=== PATIENT | female | born 1960 | race African-American/Black ===

== ENCOUNTER 2018-02-01 19:18 | Emergency (ER) | payer OTHER ==
[~2018-02-01] VITALS: Ht 167.6 cm; Wt 154.1 kg
[~2018-02-01 19:18] MED LIST: ACETAMINOPHEN325 M1 PO; ADDERALL; ASPIRIN81 M2 PO; AUGMENTIN 875875 MG PO; BACTRIM DS TAB1 EACH PO; CIPRO250 M1 PO; CIPROFLOXACIN500 M1; CIPROFLOXACIN500 M1 PO; COREG6.25 MG PO; FLAGYL500 MG; FLEXERIL PO; GLUCOPHAGE1000 MG PO; LANTUS SUBQ; LEVAQUIN 250 M250 MG PO; LIPITOR10 MG PO; LISINOPRIL40 MG PO; LISINOPRIL5 MG PO; METFORMIN PO; MOBIC7.5 M1 PO; NAPROSYN375 MG PO; NAPROSYN500 MG PO; NICOTINE TRANSD21 M1 TD; NICOTINE1 EACH TD; NITROGLYCERIN0.4 MG SUBLING; NORCO 5-325 TA1 EACH PO; NOVOLIN R100 UNIT/1 SUBQ; NOVOLOG100 UNIT/1 SQ; NOVOLOG100 UNIT/1 SUBQ; ONDANSETRON HCL4 M2 PO; PRILOSEC20 MG PO; ROBAXIN 750 MG750 MG PO; SIMVASTATIN20 MG PO; ZESTORETIC; ZOFRAN ODT4 MG SUBLING; [UNRECOGNIZED DRUG - OTHER] MC; [UNRECOGNIZED DRUG - REMARK]
[2018-02-01] MEDS ORDERED: ALLI60 MG PO (19:34)
[2018-02-01] MEDS ORDERED: VITAMINC500 PO (19:34)
[2018-02-01] MEDS ORDERED: FAMOTIDINE 20 M20 MG PO (19:35)
[2018-02-01] MEDS ORDERED: COZAAR 25 MG TA25 M1 PO (19:36)
[2018-02-01] MEDS ORDERED: HYDRALAZINE 2525 MG PO (19:37)
[2018-02-01] MEDS ORDERED: KLOR-CON 1010 MEQ PO (19:37)
[2018-02-01] MEDS ORDERED: LASIX 20 MG TAB20 MG PO (19:39)
[2018-02-01] MEDS ORDERED: TOUJEO MAX300 UNIT/1 SUBQ (19:42)
[2018-02-01] MEDS ORDERED: PRED FORTE 1% EY5 M1 OTIC (19:44)
[2018-02-01 19:49] LABS: ABSOLUTE BASOPHILS 0.1 thou/uL (0.0-0.2); ABSOLUTE EOSINOPHILS 0.1 thou/uL (0.0-0.7); ABSOLUTE LYMPHOCYTES 2.6 thou/uL (0.8-5.3); ABSOLUTE MONOCYTES 0.9 thou/uL (0.0-1.2); ABSOLUTE NEUTROPHILS 5.4 thou/uL (1.6-8.1); EOSINOPHILS 1.4 %; HEMATOCRIT 34.7 % (37.0-47.0); HEMOGLOBIN 10.9 gm/dL (12.0-15.0); LYMPHOCYTES 28.5 %; MCH 26.7 pg (26.0-34.0); MCHC 31.4 g/dL (28.0-37.0); MCV 85.1 fL (80.0-100.0); MONOCYTES 10.3 %; MPV 7.9 fl. (7.2-11.1); NUCLEATED RBCS 0 /100WBC; PLATELET COUNT* 205 thou/uL (150-400); POLYS 58.8 %; RBC 4.07 mil/uL (4.20-5.00); RDW-CV 17.9 % (10.5-14.5); WBC 9.1 thou/uL (4.0-11.0)
[2018-02-01 19:56] LABS: ANION GAP 6 mmol/L (7-16); BUN 36 mg/dL (7-18); CALCIUM 8.7 mg/dL (8.5-10.1); CHLORIDE 108 mmol/L (98-107); CO2 25 mmol/L (21-32); CREATININE 1.5 mg/dL (0.6-1.3); GLUCOSE 116 mg/dL (70-99); POTASSIUM 4.3 mmol/L (3.5-5.1); SODIUM 139 mmol/L (136-145)
[2018-02-01 19:58] LABS: INR 1.2; PROTIME 11.2 Seconds (9.20-11.50)
[2018-02-01 20:07] LABS: ALBUMIN 2.8 g/dL (3.4-5.0); ALKALINE PHOSPHATASE 214 U/L (46-116); NT-PRO BRAIN NAT PEPTIDE 3189 pg/mL (<300); SGOT 22 U/L (15-37); SGPT 26 U/L (30-65); TOTAL BILIRUBIN 0.6 mg/dL (<0.1-1.0); TOTAL PROTEIN 7.5 g/dL (6.4-8.2); TROPONIN-I LEVEL <0.06 ng/mL (<0.06)
[2018-02-01 21:58] LABS: URINE BLOOD TRACE (Negative); URINE CLARITY CLEAR; URINE COLOR YELLOW; URINE GLUCOSE-RANDOM NEGATIVE (Negative); URINE KETONES NEGATIVE (Negative); URINE LEUKOCYTES-REFLEX NEGATIVE (Negative); URINE NITRITE-REFLEX NEGATIVE (Negative); URINE PROTEIN 3+ (Negative); URINE SPECIFIC GRAVITY 1.025 (1.005-1.030)
[2018-02-01 22:02] LABS: URINE BILIRUBIN 1+ (Negative)
[2018-02-01 22:03] LABS: ICTOTEST (BILI CONFIRMATORY) Negative (Negative)
[2018-02-01 22:04] LABS: BACTERIA-REFLEX >30 Many /HPF (None Seen); SQUAMOUS >10 Many /LPF (0-3)
[2018-02-01 22:05] LABS: CRYSTALS None Seen /LPF (None Seen); HYALINE CASTS 0-3 Few /LPF (None Seen); MUCUS None Seen strn/LPF (None Seen); URINE RBC 0-2 Rare /HPF (0-2); URINE WBC-REFLEX 0-5 Rare /HPF (0-5)
[2018-02-01 22:09] LABS: AMP/METHAMP Negative (Negative); BARBITURATES Negative (Negative); BENZODIAZEPINES Negative (Negative); COCAINE Negative (Negative); METHADONE Negative (Negative); OPIATES POSITIVE (Negative); PCP Negative (Negative); THC Negative (Negative)
[2018-02-01] MEDS ORDERED: NORCO 7.5-3251 EACH PO (22:33)
[2018-02-01 22:59] VITALS: BP 161/87
--- NOTE | 2018-02-02 13:23 | EKG ---
[place] [address] ELECTROCARDIOGRAM REPORT Name: MICHAEL COTRES Room: [facility]#: [id number] Admission: 02/01/18 Attend Phys: Discharge: 02/01/18 Date of : 58 Report #: [id number] THIS REPORT FOR: //name// [facility] ED Test Date: 2018-02-01 Test Time: 19:23:42 Pat Name: MICHAEL COTRES Department: Room: Gender: F Corporate Technical Recruiter: DAMASO : 1960 Requested By: Mony Barnhart Order Number: [id number] MD: Wu Hathaway Measurements Intervals [place] Rate: 93 P: 23 [place]: 166 QRS: -38 QRSD: 87 T: 77 QT: 367 QTc: 457 Interpretive Statements Sinus rhythm Inferior infarct, old Consider anterior infarct Lateral leads are also involved Baseline wander in lead(s) I,II,aVR,aVL,V1 Compared to ECG 11/03/2014 03:19:08 no change Electronically Signed On 02-02-2018 13:23:40 CDT by Wu Hathaway [email or web address] <ELECTRONICALLY SIGNED> By: Wu Hathaway MD, [facility] 02/02/18 1323 22 22 Wu Hathaway MD, [facility] /EPI
== END 2018-02-01 22:59 | disposition home or self-care (01) ==
LOC: M.ERS 19:18
PROVIDERS: Emergency Medicine
DX: R07.89 Other chest pain (principal); E11.9 Type 2 diabetes mellitus without complications; I11.0 Hypertensive heart disease with heart failure; I50.9 Heart failure, unspecified; F17.210 Nicotine dependence, cigarettes, uncomplicated; Z90.710 Acquired absence of both cervix and uterus; Z90.49 Acquired absence of other specified parts of digestive tract; Z88.5 Allergy status to narcotic agent; Z79.4 Long term (current) use of insulin

== ENCOUNTER 2018-03-29 22:04 | Inpatient (IN) | payer OTHER ==
[~2018-03-29] VITALS: Ht 170.2 cm; Wt 174.2 kg
[~2018-03-29 22:04] MED LIST changes: +ALLI60 MG PO; +COZAAR 25 MG TA25 M1 PO; +FAMOTIDINE 20 M20 MG PO; +HYDRALAZINE 2525 MG PO; +KLOR-CON 1010 MEQ PO; +LASIX 20 MG TAB20 MG PO; +NORCO 7.5-3251 EACH PO; +PRED FORTE 1% EY5 M1 OTIC; +TOUJEO MAX300 UNIT/1 SUBQ; +VITAMINC500 PO
[2018-03-29 22:16] VITALS: BP 192/112
[2018-03-29] MEDS ORDERED: COZAAR 25 MG TA25 M1 PO ×2 (22:26→22:27)
[2018-03-29] MEDS ORDERED: OMEPRAZOLE40 MG PO (22:26)
[2018-03-29] MEDS ORDERED: HYDRALAZINE 5050 MG (22:27)
[2018-03-29] MEDS ORDERED: LASIX 40 MG TAB40 M2 PO (22:28)
[2018-03-29] MEDS ORDERED: INDOMETHACIN 2525 MG (22:28)
[2018-03-29] MEDS ORDERED: ALKA-SELTZER P1 EAC2 (22:29)
[2018-03-29] MEDS ORDERED: PEPTO-BISMOL T262 MG (22:29)
[2018-03-29] MEDS ORDERED: [UNRECOGNIZED DRUG - OTHER] (22:30)
[2018-03-29 23:02] LABS: ABSOLUTE BASOPHILS 0.1 thou/uL (0.0-0.2); ABSOLUTE EOSINOPHILS 0.2 thou/uL (0.0-0.7); ABSOLUTE LYMPHOCYTES 2.2 thou/uL (0.8-5.3); ABSOLUTE MONOCYTES 0.8 thou/uL (0.0-1.2); ABSOLUTE NEUTROPHILS 5.1 thou/uL (1.6-8.1); BASOPHILS 0.8 %; EOSINOPHILS 1.8 %; HEMATOCRIT 38.8 % (37.0-47.0); HEMOGLOBIN 11.9 gm/dL (12.0-15.0); LYMPHOCYTES 26.5 %; MCH 27.7 pg (26.0-34.0); MCHC 30.8 g/dL (28.0-37.0); MONOCYTES 9.8 %; NUCLEATED RBCS 0 /100WBC; PLATELET COUNT* 253 thou/uL (150-400); POLYS 61.1 %; RBC 4.31 mil/uL (4.20-5.00); RDW-CV 18.5 % (10.5-14.5); WBC 8.3 thou/uL (4.0-11.0)
[2018-03-29 23:23] LABS: APTT 30.5 Seconds (25.0-31.3); INR 1.2
[2018-03-29 23:25] LABS: CALCIUM 8.3 mg/dL (8.5-10.1); CREATININE 1.6 mg/dL (0.6-1.3); POTASSIUM 4.8 mmol/L (3.5-5.1)
[2018-03-29 23:29] LABS: ALBUMIN 2.9 g/dL (3.4-5.0); TOTAL BILIRUBIN 0.4 mg/dL (<0.1-1.0); TOTAL PROTEIN 7.2 g/dL (6.4-8.2)
[2018-03-30] VITALS (28 sets, daily range): BP systolic 73–183; BP diastolic 42–101
--- NOTE | 2018-03-30 00:24 | NUR ---
PATIENT RETURNED FROM CT SCAN. PATIENTS RIGHT AC IV FLUIDS NOT FLOWING. UNABLE TO FLUSH IV . PATIENT C/O PAIN AT SITE..ALL FLUIDS STOPPED. DR AGUIRRE NOTIFIED. MARIBEL GALLEGOS, PATIENTS PRIMARY ED NURSE NOTIFIED.
--- NOTE | 2018-03-30 00:52 | NUR ---
Risks and benefits of central line placement discussed with pt, understanding verbalized. Consent obtained at this time.
--- NOTE | 2018-03-30 04:08 | NUR ---
PT ADMITTED TO ICU ROOM # 1 AT 0200 FOR GI BLEED AND ACUTE KIDNEY INJURY. PT ALERT AND ORIENTED X 4. PT HAVING INTERMITTENT SHARP STOMACH PAINS. PT GIVEN PRN FENTANYL IN ED AND AGAIN IN ICU. GOLYTELY PREP OBTAINED. PT INSTRUCTED TO START IN PREPARATION FOR COLONOSCPY.
[2018-03-30 08:12] LABS: HEMATOCRIT 31.9 % (37.0-47.0); HEMOGLOBIN 9.9 gm/dL (12.0-15.0)
[2018-03-30 09:17] LABS: CREATININE 1.5 mg/dL (0.6-1.3); MAGNESIUM 1.8 mg/dL (1.8-2.4); POTASSIUM 4.7 mmol/L (3.5-5.1)
--- NOTE | 2018-03-30 10:10 | NUR ---
INTERDISICPLINARY ROUNDS: PT ADMITTED WITH GI BLEED. MET WITH PT. SHE LIVES WITH HER CHILDREN, WORKS OUTSIDE THE HOME AND IS NORMALLY INDEPENDENT AND ACTIVE. WEARS CAM BOOT. SHE HAS HAD HH IN THE PAST AFTER AN 'AMPUTATION' BUT CANNOT REMEMBER NAME OF AGENCY. PT STATES HER SON WILL BRING IN INSURANCE CARD. WILL FOLLOW
--- NOTE | 2018-03-30 10:30 | NUR ---
0730 ASSUMED CARE OF PATIENT. UP TO BSC. SEE DOCUMENTED ASSESSMENT. DR MISHRA HERE TO SEE PATIENT. PT C/O ABDOMINAL PAIN. BOWEL PREP IN PROGRESS.
--- NOTE | 2018-03-30 10:31 | NUR ---
1000 PT NAUSEOUS AND RETCHING HAS TAKEN ABOUT 2/3 OF COLYTE PREP. STOPPED REMAINDER OF PREP AT THIS TIME.
--- NOTE | 2018-03-30 16:08 | NUR ---
TO OR PER BED. FAMILY SAW PATIENT BEFORE SHIE LEFT FOR PROCEDURE
--- NOTE | 2018-03-30 17:31 | NUR ---
1710 RECEIVED BACK FROM OR PER BED. PT SPIT OUT ORAL AIRWAY AND ASKED FOR ICE CHIPS. ABLE TO MOVE SELF IN BED
--- NOTE | 2018-03-30 18:32 | NUR ---
PATIENT MAKING SOME PROGRESS TOWARDS GOALS. EGD AND COLONOSCOPY DONE. RESUMED DIET. VITAL SIGNS BETTER.STILL HAS C/O HEARTBURN. SEE EKG AND VITAL SIGNS CHARTING. FAMILY HAS VISITED
--- NOTE | 2018-03-30 18:44 | NUR ---
ANTACIDS JUST DELIVERED BY PHARMACY BUT PT IS ASLEEP
--- NOTE | 2018-03-30 19:46 | NUR ---
INITAL ASSESMENT COMPLETED AT 191. PT REPORTED SHARP ABDOMINAL PAIN AT THAT TIME. PT GIVEN PRN FENTANYL WITH GOOD RESULTS. PT ALSO GIVEN TUMS AND GI COCTAIL. PT RESTING WITH OU CLOSED, CALL LIGHT IN REACH.
[2018-03-31] VITALS (19 sets, daily range): BP systolic 87–156; BP diastolic 50–92
[2018-03-31 05:01] LABS: HEMATOCRIT 28.4 % (37.0-47.0); HEMOGLOBIN 8.9 gm/dL (12.0-15.0); MCH 27.7 pg (26.0-34.0); MCHC 31.1 g/dL (28.0-37.0); MCV 88.8 fL (80.0-100.0); MPV 7.7 fl. (7.2-11.1); RBC 3.2 mil/uL (4.20-5.00); WBC 9.6 thou/uL (4.0-11.0)
[2018-03-31 05:23] LABS: HEMATOCRIT 28.1 % (37.0-47.0); HEMOGLOBIN 8.9 gm/dL (12.0-15.0)
[2018-03-31 05:29] LABS: CALCIUM 7.8 mg/dL (8.5-10.1); CREATININE 2.3 mg/dL (0.6-1.3); MAGNESIUM 1.8 mg/dL (1.8-2.4); POTASSIUM 5.2 mmol/L (3.5-5.1)
--- NOTE | 2018-03-31 08:49 | NUR ---
0730 assumed care of patient. please see documented assessment. BLOODPRESSURES STILL RUNNING LOW FOR THIS PATIENT
--- NOTE | 2018-03-31 14:23 | NUR ---
DR CHURCH TO SEE PATIENT. BLOOD PRESSURES HAVE IMPROVED THROUGHOUT THE DAY AND WILL NOTIFY DR SCOTT
--- NOTE | 2018-03-31 14:56 | NUR ---
PT IS NOW TELE STATUS.
--- NOTE | 2018-03-31 15:09 | EKG ---
[place] [address] ELECTROCARDIOGRAM REPORT Name: MICHAEL CORTES Room: [address] ADM IN ..#: [id number] Admission: 03/30/18 Attend Phys: Taryn Hartman Discharge: Date of : 58 Report #: [id number] THIS REPORT FOR: //name// [facility] ED Test Date: 2018-03-30 Test Time: 18:20:33 Pat Name: MICHAEL CORTES Department: Room: [address] Gender: F Funeral Service Apprentice: SARI : 1960 Requested By: Michele Reyna Order Number: [id number] Reading MD: Gumaro Davidson Measurements Intervals [place] Rate: 103 P: -28 ND: 158 QRS: -45 QRSD: 89 T: 60 QT: 377 QTc: 494 Interpretive Statements Sinus tachycardia Inferior infarct, old Probable anteroseptal infarct, old Baseline wander in lead(s) II,III,aVF Compared to ECG 02/01/2018 19:23:42 Sinus rhythm no longer present Myocardial infarct finding still present Electronically Signed On 03-31-2018 15:08:54 CDT by Gumaro Davidson [email or web address] <ELECTRONICALLY SIGNED> By: Padmaja Davidson MD, [facility] 03/31/18 1508 19 19 Padmaja Davidson MD, [facility] /EPI
--- NOTE | 2018-03-31 16:41 | NUR ---
PATIENT PROGRESSING TOWARDS GOALS. RESUMED IV FLUIDS WITH BLOOD PRESSURE IMPROVING. ABLE TO EAT CARB CONTROLLED DIET. BM WAS BROWN BUT INCONTINENT. TO MOVE TO ROOM 221. SEEN BY DR CHURCH WITH PLAN TO HAVE COLONOSCOPY ON MONDAY. PATIENT CONTINUES TO REPORT HEART BURN "CHEST PAIN" AT TIMES. ON ROOM AIR AT THIS TIME. FAMILY HAS VISITED
--- NOTE | 2018-03-31 17:46 | NUR ---
TRANSFERRED PER WHEELCHAIR TO [facility] WITH ALL RECORDS AND BELONGINGS. REPORT TO RONALDO GALLEGOS. PT INCONTINENT OF STOOL UPON TRANSFER. PLACED ON BSC AND GIVEN CALL LIGHT
--- NOTE | 2018-03-31 18:15 | NUR ---
TRANSFER FROM ICU TO TELE ROOM 221 VIA W/C. ASSIST TO BSC TO VOID THEN TO BED. DIRECTOR FINANCIAL SERVICES PLACED, TRACKING SR. PATIENT OREITNED TO ROOM/CALL LIGHT AND REVIEWED PLAN OF CARE. PATIENT SETTLED INTO ROOM, GIVEN WARM BLANKET - IV PAIN MEDICATION TO ASSIST WITH COMPLAINTS OF ABD PAIN. WILL GIVE REPORT TO ONCOMING NURSE FOR CONTINUATION OF CARE. CALL LIGHT WITHIN REACH, SON AT BEDSIDE.
[2018-04-01 04:00] VITALS: BP 107/59
--- NOTE | 2018-04-01 07:32 | NUR ---
PATIENT HAD MULTIPLE LOOSE, INCONTINENT, BLOODY STOOLS THROUGHOUT SHIFT. WALTER CARE PROVIDED WITH INCONTINENCE CHECKS. PATIENT EDUCATED ON PLAN OF CARE AND REPEAT OF BOWEL PREP TODAY FOR COLONOSCOPY SCHEDULED FOR TOMORROW. PATIENT VERBALIZES UNDERSTANDING. CLEAR LIQUID DIET IN PLACE. PATIENT RECEIVED FENTANYL FOR ABDOMINAL PAIN, WITH RELIEF. HOURLY ROUNDING OBSERVED. CALL LIGHT WITHIN REACH
[2018-04-01 08:00] VITALS: BP 119/68
--- NOTE | 2018-04-01 08:15 | NUR ---
ASSUMED PT. CARE AND RECEIVED REPORT AT 0730. PT. SLEEPY, BUT AROUSABLE AND ORIENTATED X4, VSS, MONITOR ON TRACING SR. ON RA @ 100%. PT. UP TO RECLINER. FULL ASSESSMENT COMPLETED, REFER TO CHARTING. NO CURRENT COMPLAINTS. ON CLEAR LIQUID DIET FOR BOWEL PREP TODAY, PT. AWARE. CALL LIGHT IN REACH, WILL CONTINUE WITH PLAN OF CARE.
[2018-04-01 08:18] LABS: HEMATOCRIT 27.2 % (37.0-47.0); HEMOGLOBIN 8.4 gm/dL (12.0-15.0)
[2018-04-01 11:49] VITALS: BP 105/54
[2018-04-01 16:00] VITALS: BP 116/96
[2018-04-01 17:36] LABS: ABSOLUTE EOSINOPHILS 0.2 thou/uL (0.0-0.7); ABSOLUTE LYMPHOCYTES 1.1 thou/uL (0.8-5.3); ABSOLUTE MONOCYTES 0.6 thou/uL (0.0-1.2); BASOPHILS 0.6 %; HEMATOCRIT 27.9 % (37.0-47.0); HEMOGLOBIN 8.8 gm/dL (12.0-15.0); LYMPHOCYTES 18.4 %; MCH 27.8 pg (26.0-34.0); MCHC 31.3 g/dL (28.0-37.0); MCV 88.7 fL (80.0-100.0); MONOCYTES 10.6 %; MPV 7.3 fl. (7.2-11.1); NUCLEATED RBCS 0 /100WBC; PLATELET COUNT* 178 thou/uL (150-400); POLYS 67.4 %; RBC 3.15 mil/uL (4.20-5.00); RDW-CV 17.6 % (10.5-14.5)
[2018-04-01 17:47] LABS: CALCIUM 7.6 mg/dL (8.5-10.1); CREATININE 3.3 mg/dL (0.6-1.3); POTASSIUM 4.6 mmol/L (3.5-5.1)
--- NOTE | 2018-04-01 17:55 | NUR ---
ATTEMPTED TO CALL DR. Joaquin WITH STAT LABS, VOICEMAIL LEFT FOR RETURN CALL.
--- NOTE | 2018-04-01 18:06 | NUR ---
RECEIVED CALL BACK FROM DR Joaquin (GI). GIVEN LABS. NEW ORDER RECEIVED FOR NEPHROLOGY CONSULT, DC COLONOSCOPY, AND SOFT/LOW RESIDUE DIET.
--- NOTE | 2018-04-01 19:47 | NUR ---
PT. HAS REMAINED DROWSY MOST OF THE DAY. MULTIPLE LARGE INCONT. LOOSE BM'S POST START OF BOWEL PREP, SINCE HAS BEEN STOPPED. PT. INFORMED OF PLAN FOR NO COLONOSCOPY TOMORROW. HOURLY ROUNDING COMPLETED THROUGH OUT THE DAY FOR PT. SAFETY.
[2018-04-01 20:00] VITALS: BP 126/75
--- NOTE | 2018-04-01 22:52 | NUR ---
PLACED 16FR INDWELLING PIERCE CATH ORDERED MILD DISCOMFORT EXPRESSED WITH INSERTION HOWEVER OVERALL TOLERATED WELL ABOUT 200 MLS OF CLOUDY YELLOW URINE RETURNED SPECIMEN COLLECTED ET SENT TO LAB ORDERED SAFETY INTERVENTIONS CONTINUE WILL CONTINUE TO MONITOR PATIENT
[2018-04-01 22:54] LABS: URINE BILIRUBIN NEGATIVE (Negative); URINE BLOOD NEGATIVE (Negative); URINE CLARITY SL CLOUDY; URINE COLOR YELLOW; URINE GLUCOSE-RANDOM NEGATIVE (Negative); URINE KETONES NEGATIVE (Negative); URINE LEUKOCYTES-REFLEX NEGATIVE (Negative); URINE NITRITE-REFLEX NEGATIVE (Negative); URINE PROTEIN 1+ (Negative); URINE SPECIFIC GRAVITY >= 1.030 (1.005-1.030); URINE UROBILINOGEN 0.2 E.U./dl (0.2-1.0)
[2018-04-01 22:59] LABS: URINE POTASSIUM-RANDOM 57.6 mmol/L
[2018-04-01 23:08] LABS: MUCUS None Seen strn/LPF (None Seen); SQUAMOUS 4-10 Moderate /LPF (0-3)
[2018-04-01 23:09] LABS: AMORPHOUS URATES Moderate /LPF (None Seen); BACTERIA-REFLEX 1-9 Few /HPF (None Seen); CASTS None Seen /LPF (None Seen); URINE RBC None Seen /HPF (0-2); URINE WBC-REFLEX None Seen /HPF (0-5)
[2018-04-02 00:37] VITALS: BP 107/64
[2018-04-02 04:00] VITALS: BP 148/76
[2018-04-02 05:13] LABS: ABSOLUTE BASOPHILS 0.1 thou/uL (0.0-0.2); ABSOLUTE EOSINOPHILS 0.2 thou/uL (0.0-0.7); ABSOLUTE LYMPHOCYTES 1.2 thou/uL (0.8-5.3); ABSOLUTE MONOCYTES 0.7 thou/uL (0.0-1.2); BASOPHILS 1.1 %; EOSINOPHILS 3.6 %; HEMATOCRIT 27.8 % (37.0-47.0); HEMOGLOBIN 8.6 gm/dL (12.0-15.0); LYMPHOCYTES 19.6 %; MCH 27.6 pg (26.0-34.0); MCHC 31.1 g/dL (28.0-37.0); MCV 88.9 fL (80.0-100.0); MONOCYTES 11.2 %; MPV 7.9 fl. (7.2-11.1); NUCLEATED RBCS 0 /100WBC; PLATELET COUNT* 189 thou/uL (150-400); POLYS 64.5 %; RBC 3.12 mil/uL (4.20-5.00); RDW-CV 17.7 % (10.5-14.5); WBC 6.2 thou/uL (4.0-11.0)
[2018-04-02 05:19] LABS: ALBUMIN 2.3 g/dL (3.4-5.0); CALCIUM 7.7 mg/dL (8.5-10.1); CREATININE 3.6 mg/dL (0.6-1.3); MAGNESIUM 1.9 mg/dL (1.8-2.4); POTASSIUM 4.8 mmol/L (3.5-5.1); TOTAL BILIRUBIN 0.5 mg/dL (<0.1-1.0); TOTAL PROTEIN 6.3 g/dL (6.4-8.2)
--- NOTE | 2018-04-02 06:59 | NUR ---
PATIENT COMPLAIN OF TIGHTNESS OF BANDS ON ARMS STATES SHE FEELS SWOLLEN BILATERAL UPPER EXTREMITIES NOTED IS COOL TO TOUCH DECREASED NS INFUSION RATE TO 100 FROM 150ML/HR PATIENT DENIES SOA PRESENTLY DECREASED OUTPUT NOTED 375ML PER PIERCE WITH 2 UNMEASURED VOIDS AT SHIFT START PRIOR TO PLACEMENT SCANT OUTPUT AND REPORTED TO ONCOMING RN
[2018-04-02 08:30] VITALS: BP 144/85
--- NOTE | 2018-04-02 11:21 | NUR ---
FLUIDS AND ANTIBIOTICS STOPPED PER DR MISHRA. ASPIRIN HELD PER WELL. BRENNEN RESTING AT THIS TIME.
--- NOTE | 2018-04-02 11:23 | NUR ---
PATIENT NOW MED SURG STATUS.
--- NOTE | 2018-04-02 15:47 | NUR ---
REPORT CALLED TO JOSE M. ALL QUESTIONS ANSWERED. PATIENT WILL GO BY WHEELCHAIR WITH NURSING STAFF. ALL BELONGINGS PACKED AND READY TO GO.
--- NOTE | 2018-04-02 18:01 | NUR ---
ALERT AND ORIENTED X4. HAS BEEN VERY DROWZY SINCE ARRIVING TO UNIT. 10/10 PAIN WHEN SHE IS AWAKE. IV PAIN MEDICATION ADMISTERED UPON ARRIVAL TO UNIT. DENIES NAUSEA. IJ TRIPLE LUMEN IS PATENT AND SALINE LOCKED. PIERCE IN PLACE AND DRAINING. VSS ON ROOM AIR. HOURLY ROUNDS HAVE BEEN MAINTAINED SINCE ARRIVING TO UNIT. CALL LIGHT IS WITHIN REACH. NURSING WILL CONTINUE TO MONITOR.
--- NOTE | 2018-04-02 19:00 | NUR ---
ASSUMED CARE OF PATIENT. AGREE WITH PREVIOUS NURSES CHARTING. PATIENT HAS BEEN ORIENTED TO ROOM. CALL LIGHT IS WITHIN REACH. NURSING WILL CONTINUE TO MONITO.
[2018-04-02 19:07] LABS: IgG 1336 mg/dL (700-1600); IgM 50 mg/dL (26-217)
[2018-04-02 21:00] VITALS: BP 105/61
[2018-04-03 01:48] LABS: URINE BLOOD 3+ (Negative); URINE CLARITY TURBID; URINE COLOR RED; URINE GLUCOSE-RANDOM NEGATIVE (Negative); URINE KETONES TRACE (Negative); URINE LEUKOCYTES NEGATIVE (Negative); URINE NITRITE POSITIVE (Negative); URINE PROTEIN 3+ (Negative); URINE SPECIFIC GRAVITY >= 1.030 (1.005-1.030); URINE UROBILINOGEN 0.2 E.U./dl (0.2-1.0)
[2018-04-03 01:54] LABS: URINE BILIRUBIN 2+ (Negative)
[2018-04-03 01:57] LABS: ICTOTEST (BILI CONFIRMATORY) Negative (Negative)
[2018-04-03 02:07] LABS: CASTS None Seen /LPF (None Seen); SQUAMOUS NONE SEEN /LPF (0-3); URINE RBC >20 Many /HPF (0-2); URINE WBC 6-15 Few /HPF (0-5)
[2018-04-03 02:08] LABS: AMORPHOUS URATES Few /LPF (None Seen); MUCUS 4-6 Moderate strn/LPF (None Seen)
[2018-04-03 04:33] LABS: HEMATOCRIT 27.6 % (37.0-47.0); HEMOGLOBIN 8.7 gm/dL (12.0-15.0); MCH 27.9 pg (26.0-34.0); MCHC 31.6 g/dL (28.0-37.0); MCV 88.3 fL (80.0-100.0); MPV 7.7 fl. (7.2-11.1); RBC 3.12 mil/uL (4.20-5.00); RDW-CV 17.4 % (10.5-14.5); WBC 7.3 thou/uL (4.0-11.0)
[2018-04-03 04:45] LABS: CALCIUM 7.6 mg/dL (8.5-10.1); CREATININE 4.2 mg/dL (0.6-1.3); MAGNESIUM 1.9 mg/dL (1.8-2.4); POTASSIUM 4.6 mmol/L (3.5-5.1)
--- NOTE | 2018-04-03 07:32 | NUR ---
PATIENT ALERT AND ORIENTED X 4. VITALS STABLE. PIERCE TO DEPENDENT DRAINAGE. URINE IS DARK RED IN COLOR. PHYSICIAN NOTIFIED OF URINE COLOR AND OUTPUT. REPOSITIONED IN BED PER REQUEST. DROWSY WITH PAIN MEDICATIONS. PLACED ON 2L OF OXYGEN DURING THE NIGHT. GENERALIZED EDEMA NOTED. HOURLY ROUDS. BED ALARM IN USE. NURSING WILL CONTINUE TO MONITOR.
--- NOTE | 2018-04-03 09:29 | CON ---
[address] [address] CONSULTATION Name: MICHAEL CORTES Room: [address] IN ..#: [id number] Admission: 03/30/18 Attend Phys: Taryn Hartman Discharge: Date of : 58 Report #: [id number] THIS REPORT FOR: //name// CC: DIONICIO physician/PCP Philip Calderón DATE OF SERVICE: 04/02/2018 CONSULTING PHYSICIAN: Philip Calderón DO. REASON FOR NEPHROLOGY CONSULTATION: Worsening creatinine, acute kidney injury and chronic kidney disease, stage 3. CHIEF COMPLAINT: Abdominal pain and rectal bleeding. HISTORY OF PRESENT ILLNESS: This is a 57-year-old very pleasant female who has past medical history of diabetes type 2, she reports also diabetic retinopathy and she also reports that her diabetes is well controlled, history of gestational congestive heart failure that she reports and history of morbid obesity and history of hypertension, who came in with a large volume of rectal bleeding and passing clots. The symptoms started all of a sudden when she had left lower quadrant pain and then, she just started passing clots through her rectum. She is scheduled to have a colonoscopy soon. She does take indomethacin 3 times a day at home. It was also noted that the patient states that she also takes Lasix about 60 mg a day because of a congestive heart failure. She also states that she takes both lisinopril and losartan. Her creatinine was 1.5 when she came in. It seems like her baseline could be between 1.5-1.6. Her creatinine has been rising when it was 2.3 on Monday and then 3.1 yesterday morning, 3.3 yesterday evening and 3.6 today. She has been getting IV fluids since her creatinine has been rising since it was 2.3 on Monday. She also has a urinary catheter and has been oliguric. She is not reporting any difficulty breathing. She also states that she takes Bowen Aspirin about every 2 days or so when she has pain. Currently, she is not having any diarrhea, but she also reports that she has been throwing up some. For possible colitis, she has also been started on antibiotic in the form of Zosyn. She was given GoLYTELY for colonoscopy preparation yesterday, but she was asked not to complete the whole colonoscopy preparation since her creatinine was rising. Colonoscopy is now on hold since her creatinine has risen to 3.6. Her blood pressures have also been low quite a few times and it was as low as 90 systolic day before yesterday. ALLERGIES: TO MORPHINE. REVIEW OF SYSTEMS: This is as mentioned in history of present illness[place] [address] CONSULTATION Name: MICHAEL CORTES Room: [address] IN .R.#: [id number] Admission: 03/30/18 Attend Phys: Taryn Hartman Discharge: Date of : 58 Report #: [id number] HOME MEDICATIONS: Include aspirin, lisinopril, nitroglycerin, carvedilol, atorvastatin, ascorbic acid, famotidine, potassium chloride, insulin glargine, losartan 150 mg q. day? omeprazole, hydralazine, Lasix 60 mg a day, indomethacin 25 mg 3 times a day, bismuth subsalicylate Pepto-Bismol, chlorphentermine [place]. PAST MEDICAL AND SURGICAL HISTORY: Includes hysterectomy, insulin-dependent diabetes mellitus, appendectomy, hypertension, possible chronic kidney disease stage 3 with baseline creatinine 1.5-1.6, lymph nodes removed from bilateral armpit, cholecystectomy, [place] in 2007, abscess drained in May, congestive heart failure, left half foot amputation, neuropathy, CKD stage 3, morbid obesity, mild PCM? Her ejection fraction was noted to be 25% in 2014. FAMILY HISTORY: She reports no family history of any kidney disease. SOCIAL HISTORY: She lives with her sons. She does smoke cigarettes. No alcohol use, illicit drug use. 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 PHYSICAL EXAMINATION: VITAL SIGNS: Blood pressure is 144/85 and pulse 75, temperature 36.4, pulse ox is 96% and she is on room air. GENERAL: She is awake, alert and oriented, sitting up in bed, watching TV. HEAD, EYES, EARS, NOSE AND THROAT: Mucous membranes are moist. NECK: Negative. There is no JVD. CHEST: Bilateral diminished breath sounds. No crackles or wheezing. CARDIOVASCULAR: S1 and S2 normal. No murmurs heard. ABDOMEN: Soft, obese and there is a lower abdominal wall at least 2+ edema. LOWER EXTREMITIES: There is a 3+ edema bilateral lower extremities. She has had a left foot transmetatarsal amputation done, which she said was after an accident. NEUROLOGICAL FUNCTION: Gross neurological function is intact. PSYCHIATRIC: Mood and affect seem to be normal. LABORATORY DATA: Hemoglobin 8.6, whereas it was 11.9 on admission. Platelet count is 189, potassium is 4.8, sodium is 141, creatinine is 3.6, whereas it was 1.6 on admission. Other labs are reviewed. IMAGING: Chest x-ray, abdominal pelvic CT were reviewed. ASSESSMENT: 1. Acute kidney injury, chronic kidney disease stage 3, urinalysis showed 1+ protein and no blood in it, baseline creatinine seems to be 1.5-1.6, but now creatinine is 3.6. Initial CT of the abdomen did not show any evidence of obstructive uropathy, but she has developed acute kidney injury after that since then. Therefore, ultrasound needs to be rechecked. Acute kidney injury is [facility] [address] [place] [address] CONSULTATION Name: MICHAEL CORTES Room: [address]#: [id number] Admission: 03/30/18 Attend Phys: Taryn Hartman Discharge: Date of : 58 Report #: [id number] likely ischemic acute tubular necrosis because of hypotension, nonsteroidal antiinflammatory drug use, Lasix as well as lisinopril and losartan use as well as because of lower gastrointestinal bleed. 2. Hematochezia: Colonoscopy is pending, will be done once her creatinine starts getting better. 3. History of chronic systolic congestive heart failure, currently the patient is getting fluid overloaded, so we will go ahead and decrease her IV fluids, normal saline 50 mL an hour. It will be worthwhile to repeat an echocardiogram. 4. Likely diabetic and hypertensive nephropathy, also nonsteroidal antiinflammatory drug is contributing to chronic kidney disease. 5. Diabetes type 2. Blood sugars currently running a little low. 6. Hypertension, blood pressure is currently running a little low. 7. Lower gastrointestinal bleed and acute anemia because of blood loss, GI is following. PLAN: 1. This is likely ischemic ATN, so I do not feel an IV fluid is going to make a difference, she is also getting fluid overloaded, so we will go ahead and decrease normal saline to 50 mL an hour. Threshold to stop IV fluids will also be low in the near future. 2. We will also repeat a renal ultrasound and we will also check serum immunofixation studies. 3. I would decrease Zosyn to q.12h. to adjust the patient's lower GFR. 4. We will go ahead and stop losartan and would also stop hydralazine so that she can maintain a higher blood pressure. 5. Strict I's and O's need to be maintained. 6. Try to keep mean arterial pressure of 65-70. Thank you for this consultation. We will continue to follow along with you. I spent more than 35 minutes in the patient's critical care and evaluating her toward reviewing her medications, placing orders, examining her, discussion with the patient as well as the patient's nurse and we will continue to follow along with you. <ELECTRONICALLY SIGNED> By: Silvia Rose MD 04/03/18 0929 0948 1804Aruiz Rose MD /nt
[2018-04-03 10:11] LABS: HEPATITIS B SURFACE AG Negative (Negative)
[2018-04-03 14:10] LABS: IgA 209 mg/dL (87-352); IgG 1339 mg/dL (700-1600); IgM 51 mg/dL (26-217)
[2018-04-03 16:48] VITALS: BP 111/62
--- NOTE | 2018-04-03 20:27 | NUR ---
ALERT AND ORIENTED X4. UP WITH ASSIST X1 WITH GAIT BELT. IV IS PATENT AND SALINE LOCKED. PAIN BEING MANAGED WITH PO PAIN MEDICATION. DENIES NAUSEA. URINE OUTPUT IS OLIGURIC, AND BLOOD TINDGED. IRRIGATED BLADDER MULTIPLE TIMES THIS SHIFT. GENERALIZED EDEMA. VSS ON ROOM AIR. HOURLY ROUNDS HAVE BEEN MAINTAINED THROUGHOUT [facility]. CALL LIGHT IS WITHIN REACH. NURSING WILL CONTINUE TO MONITOR.
[2018-04-03 22:35] VITALS: BP 146/88
--- NOTE | 2018-04-04 05:49 | NUR ---
PATIENT ALERT AND ORIENTED X 4. VITALS STABLE. RA. DENIES THE NEED FOR PAIN MEDICATION. PIERCE TO DEPENDENT DRAINAGE. CATHETER FLUSHED PER ORDER. LEAKAGE NOTED FROM CATHETER BAG, WILL NOT HAVE ACCURATE MEASUREMENT OF URINE OUTPUT. BED BATH PROVIDED. HOURLY ROUNDS. BED ALARM IN USE. NURSING WILL CONTINUE TO MONITOR.
[2018-04-04 07:45] VITALS: BP 157/74
[2018-04-04 08:07] LABS: HEMATOCRIT 27.7 % (37.0-47.0); HEMOGLOBIN 8.6 gm/dL (12.0-15.0); MCH 27.6 pg (26.0-34.0); MCHC 31.2 g/dL (28.0-37.0); MCV 88.3 fL (80.0-100.0); RBC 3.13 mil/uL (4.20-5.00); RDW-CV 17.5 % (10.5-14.5); WBC 7.2 thou/uL (4.0-11.0)
[2018-04-04 08:59] LABS: CALCIUM 8.1 mg/dL (8.5-10.1); CREATININE 4.5 mg/dL (0.6-1.3); MAGNESIUM 1.9 mg/dL (1.8-2.4)
[2018-04-04 09:25] LABS: PHOSPHORUS* 5.4 mg/dL (2.5-4.9); URIC ACID* 7.7 mg/dL (2.6-7.2)
[2018-04-04 10:11] LABS: ANA INTERPRETATION Negative (Negative)
--- NOTE | 2018-04-04 14:53 | NUR ---
I HAVE REVIEWED THE REASSESSMENT AND DOCUMENTATION BY STUDENT USSANA LOUIE AND AGREE
[2018-04-04 15:07] VITALS: BP 174/93
[2018-04-04 15:12] LABS: KAPPA FREE LIGHT CHAINS 132.1 mg/L (3.3-19.4); LAMBDA FREE LIGHT CHAINS 81.3 mg/L (5.7-26.3)
--- NOTE | 2018-04-04 17:50 | NUR ---
ASSUMED CARE OF PATEINT AFTER MORNING REPORT AT APPROX 0730. ALERT AND ORIENTED X4. ASSESSMENT COMPLETED AND CHARTED. VSS ON ROOM AIR. NO COMPLAINTS OF NAUSEA OR SOA. COMPLAINT OF HEADACHE THIS AFTERNOON, MANAGED WITH MEDICATION. URINE OUTPUT HAS BEEN MINIMAL TODAY BUT RUEINT HAS REMAINED "CLEAR" LIGHT YELLOW. PATIENT CONCENRED ABOUT SWELLING IN ARMS AND TORSO RELATED TO FLUID RETENTION, PATIENT BANDS HAD TO BE REMOVED AND REPLACED DUE TO SWELLING CAUSING TIGHTNESS. PATIENT REQUESTED BENADRYL THIS AFTERNOON FOR ITCHING WITH NO RELIEF, LIKELY RELATED TO THE SWELLING. RESTING COMFORTABLY IN BED AT THIS TIME. HOURLY ROUNDS MAINTAINED, CALL LIGHT WITHIN REACH, NURSING WILL CONTINUE TO MONITOR.
[2018-04-04 21:30] VITALS: BP 129/90
--- NOTE | 2018-04-05 07:21 | NUR ---
PATIENT ALERT AND ORIENTED X 4. VITALS STABLE. RA. PIERCE TO DEPENDENT DRAINAGE. URINE NO LONGER BLOOD TINGED. DENIES PAIN AND NAUSEA. REPOSITIONED IN BED PER REQUEST. HOURLY ROUNDS. BED ALARM IN USE. NURSING WILL CONTINUE TO MONITOR.
[2018-04-05 07:29] LABS: CALCIUM 8.6 mg/dL (8.5-10.1); CREATININE 4.4 mg/dL (0.6-1.3); MAGNESIUM 1.9 mg/dL (1.8-2.4); PHOSPHORUS* 5.3 mg/dL (2.5-4.9); POTASSIUM 5.3 mmol/L (3.5-5.1)
[2018-04-05 08:51] VITALS: BP 149/82
[2018-04-05 10:01] LABS: HEMATOCRIT 28.1 % (37.0-47.0); HEMOGLOBIN 8.9 gm/dL (12.0-15.0); MCH 27.5 pg (26.0-34.0); MCHC 31.7 g/dL (28.0-37.0); MCV 86.8 fL (80.0-100.0); MPV 8.1 fl. (7.2-11.1); RBC 3.23 mil/uL (4.20-5.00); WBC 7.6 thou/uL (4.0-11.0)
[2018-04-05 15:34] VITALS: BP 144/78
--- NOTE | 2018-04-05 18:46 | NUR ---
ASSUMED CARE OF PATIENT AFTER MORNING REPORT AT APPROX 0730. ALERT AND ORIENTED X4. ASSESSMENT COMPLETED AND CHARTED. VSS. NO COMPLAINTS OF PAIN, NAUSEA, OR SOA THIS SHIFT. URINE OUTPUT IS IMPROVING, SEE CHARTING. PATIENT STATES THAT SHE IS STARTING TO FEEL BETTER, MOVING MORE AROUND THE ROOM AND WORKING WITH THERAPIES. HOURLY ROUNDS MAINTAINED, CALL LIGHT WITHIN REACH, NURSING WILL CONTINUE TO MONITOR.
[2018-04-05 20:00] VITALS: BP 139/95
[2018-04-06 04:54] LABS: HEMATOCRIT 27.5 % (37.0-47.0); HEMOGLOBIN 8.7 gm/dL (12.0-15.0); MCH 27.6 pg (26.0-34.0); MCHC 31.6 g/dL (28.0-37.0); MCV 87.2 fL (80.0-100.0); MPV 7.8 fl. (7.2-11.1); RBC 3.16 mil/uL (4.20-5.00); RDW-CV 17.1 % (10.5-14.5); WBC 7.4 thou/uL (4.0-11.0)
[2018-04-06 05:27] LABS: CALCIUM 9.1 mg/dL (8.5-10.1); MAGNESIUM 2.3 mg/dL (1.8-2.4); POTASSIUM 5.1 mmol/L (3.5-5.1)
--- NOTE | 2018-04-06 05:43 | NUR ---
ASSUMED PATIENT CARE AT 1915. PATIENT ALERT AND ORIENTED TIMES FOUR. PAIN MED GIVEN PER PATIENT REQUEST. NO FURTHER COMPLAINTS AFTER ADMINISTRATION. RIGHT JUGULAR LINE PATENT TO FLUSHES AND TO BLOOD DRAW. SOME NAUSEA NOTED THIS AM. MEDS GIVEN. HOURLY ROUNDING AND MOLECULAR BIOLOGIST COMPLETED DOCUMENTED. PATIENT TURNS SELF. WILL CONTINUE TO MONITOR
[2018-04-06 09:54] VITALS: BP 147/87
--- NOTE | 2018-04-06 11:17 | NUR ---
FOLLOWING FOR DISCHARGE, CM SAW PT. SHE WAS RESTING IN BED. ALERT AND ORIENTED. SHE SAID SHE MIGHT FEEL A LITTLE BETTER. HER STOMACH HURTS TODAY. SHE HAS RECEIVED MEDICATION FOR BOTH. SHE HAS NO CONCERNS OR QUESTIONS AT THIS TIME.
[2018-04-06 15:35] VITALS: BP 160/95
--- NOTE | 2018-04-06 18:03 | NUR ---
ASSUMED CARE OF PATIENT AFTER MORNING REPORT AT APPROX 0730. ALERT AND ORIENTED X4. ASSESSMENT COMNPLETED AND CHARTED. VSS ON ROOM AIR. NO COMPLAINTS OF NAUSEA OR SOA THI SHIFT. MINIMAL COMPLAINT OF PAIN, MANAGED WITH MEDICATION. RESTING COMFORTABLY IN BED AT THIS TIME. URINE OUTPUT IMPROVING. HOURLY ROUNDS MAINTAINED, CALL LIGHT WITHIN REACH, NURSING WILL CONTINUE TO MONITOR.
[2018-04-06 20:30] VITALS: BP 175/88
[2018-04-07 00:40] VITALS: BP 153/88
[2018-04-07 04:40] LABS: HEMATOCRIT 26.4 % (37.0-47.0); HEMOGLOBIN 8.4 gm/dL (12.0-15.0); MCH 27.7 pg (26.0-34.0); MCHC 31.8 g/dL (28.0-37.0); MCV 86.9 fL (80.0-100.0); MPV 7.8 fl. (7.2-11.1); RBC 3.04 mil/uL (4.20-5.00); RDW-CV 16.6 % (10.5-14.5); WBC 8.7 thou/uL (4.0-11.0)
[2018-04-07 05:05] LABS: CALCIUM 8.6 mg/dL (8.5-10.1); MAGNESIUM 2.2 mg/dL (1.8-2.4); POTASSIUM 5.7 mmol/L (3.5-5.1)
--- NOTE | 2018-04-07 08:12 | NUR ---
Alert and oriented x 4. She has been in bed all of this shift. BP has been elevated but she's asymptomatic. She did have IV pain meds for abdominal pain x 2 this shift. She refused repositioning. She has slept well.
[2018-04-07 16:00] VITALS: BP 152/84
--- NOTE | 2018-04-07 20:23 | NUR ---
ALERT AND ORIENTED X4. UP WITH ASSIST X1. IV IS PATENT AND INFUSING. DENIES NEED FOR PAIN AND NAUSEA MEDICATION THIS SHIFT. PIERCE IN PLACE AND DRAINING. TOLERATING DIET. VSS ON ROOM AIR. HOURLY ROUNDS HAVE BEEN MAINTAINED THROUGHOUT SHIFT. CALL LIGHT IS WITHIN REACH. NURSING WILL CONTINUE TO MONITOR.
[2018-04-08 06:07] LABS: HEMATOCRIT 27.1 % (37.0-47.0); HEMOGLOBIN 8.5 gm/dL (12.0-15.0); MCH 27.3 pg (26.0-34.0); MCHC 31.5 g/dL (28.0-37.0); MCV 86.9 fL (80.0-100.0); MPV 8.1 fl. (7.2-11.1); RBC 3.12 mil/uL (4.20-5.00); RDW-CV 17.3 % (10.5-14.5); WBC 7.6 thou/uL (4.0-11.0)
[2018-04-08 06:36] LABS: ALBUMIN 2.5 g/dL (3.4-5.0); CALCIUM 8.8 mg/dL (8.5-10.1); CREATININE 3.6 mg/dL (0.6-1.3); MAGNESIUM 2.4 mg/dL (1.8-2.4); PHOSPHORUS* 4.7 mg/dL (2.5-4.9); POTASSIUM 5.9 mmol/L (3.5-5.1)
--- NOTE | 2018-04-08 10:14 | NUR ---
PATIENT HAS SLEPT WELL THROUGHOUT THE NIGHT. PAIN CONTROLLED WITH ORAL PAIN MEDICATIONS. PATIENT TURNED EVERY 2HRS AND NEEDED. VSS ON 2L 02 VIA NASAL CANNULA. PIERCE TO DEPENDENT DRAINAGE WITH DARK YELLOW URINE OUTPUT. TRIPLE LUMEN IJ-SL. PATIENT INSTRUCTED TO USE CALL LIGHT WHEN NEEDING ASSISTANCE. HOURLY ROUNDS MADE. WILL CONTINUE WITH PLAN OF CARE AND NURSING TO MONITOR.
--- NOTE | 2018-04-08 11:31 | NUR ---
REPORT GIVEN TO ROSY GASTON ON TELE. WILL TRANSFER PT CHARANJIT. CHANTEL BS CHECKED AT 1130 IT WAS 82, WILL CHART ON EMAR. KAYEXALATE PROVIDED. WILL TRANSFER TO TELE PER PROVIDER ORDER DUE TO INCREASED POTASSIUM.
[2018-04-08 15:29] VITALS: BP 174/89
--- NOTE | 2018-04-08 17:48 | NUR ---
PATIENT RESTING IN CHAIR IN ROOM. HOURLY ROUNDING COMPLETED FOR PATIENT SAFETY AND PATIENT IN NO APPARENT SIGNS OF DISTRESS. PATIENT HAS HAD SMALL BOUT OF NAUSEA AND HEADACHE, WELL TREATED WITH CURRENT MEDICATION REGIMINE.
[2018-04-08 19:08] LABS: CALCIUM 8.8 mg/dL (8.5-10.1); CREATININE 3.8 mg/dL (0.6-1.3); POTASSIUM 5.3 mmol/L (3.5-5.1)
[2018-04-08 20:53] VITALS: BP 184/84
[2018-04-09 00:20] VITALS: BP 172/91
--- NOTE | 2018-04-09 02:46 | NUR ---
RECEIVED REPORT AND ASSUMED CARE AT 1900. BP ELEVATED, OTHERWISE VSS. PT REPORTED PAIN, PRN MEDICATION ADMIN PER ORDERS. ASSESSMENT COMPLETED CHARTED. DRESSING CHANGED TO LLQ ABD. MEDICATION ADMIN PER EMAR, PT REPORTED NAUSEA, PRN MEDICATION ADMIN, PT REPORTS EFFECTIVE. PT UP WITH MOD ASSIST WITH WALKER WITH BOOT. ON 2L NC. DISCUSSED PLAN OF CARE WITH PT, VERBALIZED UNDERSTANDING. WILL CONTINUE TO MONITOR FOR REMAINDER OF THE SHIFT
[2018-04-09 04:41] VITALS: BP 148/91
[2018-04-09 04:57] LABS: HEMATOCRIT 27.7 % (37.0-47.0); HEMOGLOBIN 8.7 gm/dL (12.0-15.0); MCH 27.6 pg (26.0-34.0); MCHC 31.4 g/dL (28.0-37.0); MCV 87.9 fL (80.0-100.0); MPV 7.8 fl. (7.2-11.1); RBC 3.15 mil/uL (4.20-5.00); RDW-CV 17.5 % (10.5-14.5); WBC 7.2 thou/uL (4.0-11.0)
[2018-04-09 05:10] LABS: CALCIUM 8.7 mg/dL (8.5-10.1); CREATININE 3.6 mg/dL (0.6-1.3); MAGNESIUM 2.3 mg/dL (1.8-2.4); POTASSIUM 4.9 mmol/L (3.5-5.1)
[2018-04-09 11:43] VITALS: BP 150/75
--- NOTE | 2018-04-09 14:51 | NUR ---
CONTINUE TO FOLLOW, MET WITH PT AND BHARTI/SABRINA. PT STATES STILL NOT FEELING WELL TODAY. DISCUSSED DC PLANS, SHE PLANS TO RETURN HOME AT DC. STILL NOT ABLE TO HAVE SON BRING IN INSURANCE INFO BUT PT WENT ON TO STATE 'IT WON'T COVER ALL THIS ANYWAY.' PT THOUGHT SHE HAD A PAPER IN HER BELONGINGS THAT SHE NEEDED TO SIGN FOR FINANCIAL ASSIST, WAS NOT ABLE TO LOCATE. [employer] HAS SCREENED PT AND NOT ELIGIBLE FOR PROGRAMS. CM TO FOLLOW AND ASSIST WITH DC PLANS WHEN KNOWN
--- NOTE | 2018-04-09 18:58 | NUR ---
PATIENT RESTING IN BED. UP TO CHAIR TODAY. PATINET STILL C/O ABD PAIN THAT IS WELL CONTROLLED WTH PO MEDICATION AND ZOFRAN. VITAL SIGNS STABLE AND PATIENT IN NO APPARENT SIGNS OF DISTRESS. HOURLY ROUNDING COMPLLETED FOR PATIENT SAFETY.
[2018-04-09 20:20] VITALS: BP 153/89
[2018-04-10] VITALS: BP 146/71
[2018-04-10 04:00] VITALS: BP 158/74
[2018-04-10 05:08] LABS: HEMATOCRIT 27.1 % (37.0-47.0); HEMOGLOBIN 8.5 gm/dL (12.0-15.0); MCH 27.6 pg (26.0-34.0); MCHC 31.4 g/dL (28.0-37.0); MCV 87.8 fL (80.0-100.0); MPV 7.9 fl. (7.2-11.1); RBC 3.08 mil/uL (4.20-5.00); RDW-CV 16.9 % (10.5-14.5); WBC 7.1 thou/uL (4.0-11.0)
--- NOTE | 2018-04-10 05:10 | NUR ---
Assumed care of patient at 1930. Full assessment performed and documented; hourly rounding completed for patient safety. Patient rested well throughout the night. All VSS. SR noted on telemetry. Sidhu catheter draining milind urine. Patient A&O; repositions herself in bed with minimal assistance. Pain managed by PRN medications. Right triple-lumen IJ intact and patent. Fall precautions in place; bed alarm on. Call light within patient's reach. Will continue to monitor.
[2018-04-10 06:48] LABS: ALBUMIN 2.6 g/dL (3.4-5.0); CALCIUM 8.5 mg/dL (8.5-10.1); CREATININE 3.3 mg/dL (0.6-1.3); MAGNESIUM 2.2 mg/dL (1.8-2.4); POTASSIUM 5.1 mmol/L (3.5-5.1); TOTAL BILIRUBIN 0.5 mg/dL (<0.1-1.0); TOTAL PROTEIN 6.9 g/dL (6.4-8.2)
[2018-04-10 12:00] VITALS: BP 158/95
[2018-04-10] MEDS ORDERED: CARVEDILOL3.125 MG PO (12:50)
[2018-04-10] MEDS ORDERED: TUMS PO (12:50)
[2018-04-10 12:56] VITALS: BP 158/74
--- NOTE | 2018-04-10 13:59 | NUR ---
ORDERS NOTED FOR DC HOME. MET WITH PT, GAVE HER COMMUNITY RESOURCES AND DISCOUNT DRUG CARD. PT AWARE NEEDS TO F/U WITH GI AND RENAL AND TO HAVE LABS DRAWN. DR WIN WAS TO LEAVE SCRIPT FOR PT. PT STATES SHE WILL BE ABLE TO AFFORD HER MEDS AND FAMILY WILL BE WITH HER AT HOME. NO OTHER NEEDS ID'D
--- NOTE | 2018-04-16 11:23 | CON ---
[address] [address] CONSULTATION Name: MICHAEL CORTES Room: [address] IN ..#: [id number] Admission: 03/30/18 Attend Phys: Taryn Hartman Discharge: 04/10/18 Date of : 58 Report #: [id number] THIS REPORT FOR: //name// CC: DIONICIO physician/PCP Philip Calderón DATE OF SERVICE: 03/30/2018 HISTORY OF PRESENT ILLNESS: This is a pleasant 57-year-old female, with past medical history of hypertension, diabetes, hyperlipidemia, CHF and morbid obesity, who presented to the hospital with sudden onset of large volume rectal bleeding with clots. The patient reports associated left lower quadrant abdominal pain, which is cramping in nature. The pain was present at the time of passing the blood clots. The patient denies similar such episodes in the past. The patient denies any diarrhea preceding this. The patient also denies nausea, vomiting and fevers or chills. The patient reports she takes indomethacin for arthritis and is on aspirin for coronary artery disease history. PAST MEDICAL HISTORY: As mentioned above. The patient has history of morbid obesity, hypertension, hyperlipidemia and diabetes. PAST SURGICAL HISTORY: The patient has had a cholecystectomy and appendectomy in the past. SOCIAL HISTORY: The patient denies significant alcohol use or recreational drug use. She does smoke a few cigarettes every day and has been doing this for the last 40 years. FAMILY HISTORY: Positive for coronary artery disease. Negative for colorectal cancer. PHYSICAL EXAMINATION: VITAL SIGNS: Blood pressure 113/56, pulse rate 80, respirations 10, pulse ox 100% on room air. GENERAL: The patient is alert, awake, oriented x 3. HEENT: Mucous membranes are moist. There is no congestion. Pupils are equal, round, reactive to light and accommodation. There is no scleral icterus. NECK: Supple. There is no supraclavicular lymphadenopathy. LUNGS: Clear to auscultation bilaterally. CARDIOVASCULAR: Rate and rhythm regular. S1, S2 present. ABDOMEN: Soft. There is tenderness more pronounced in the left lower quadrant with erythema and inflammation in the area suggesting cellulitis. EXTREMITIES: There is pitting edema bilaterally. NEUROLOGIC: [place] [address] CONSULTATION Name: MICHAEL CORTES Taryn Room: [address]#: [id number] Admission: 03/30/18 Attend Phys: Taryn Hartman Discharge: 04/10/18 Date of : 58 Report #: [id number] LABORATORY DATA: Hemoglobin 11.9, hematocrit 38.8, platelet count 203, WBC count 8.3. Sodium 143, potassium 4.7, bicarbonate 25, BUN 38, creatinine 1.5. AST 22, ALT 24, alkaline phosphatase 247, lipase 107. INR 1.2. Abdomen and pelvis CT, numerous diverticula without evidence of acute inflammation, surgical changes of cholecystectomy and appendectomy and mild thickening of the lower anterior abdominal wall, which may represent cellulitis, moderate adenopathy, inguinal canal of uncertain significance. ASSESSMENT AND PLAN: This is a very pleasant 57-year-old female with past medical history significant of morbid obesity, hypertension, diabetes, hyperlipidemia presenting with large volume hematochezia. PLAN: We will proceed with EGD and colonoscopy. Further recommendations will be based on the results of these tests. <ELECTRONICALLY SIGNED> By: Erasmo Colon MD 04/16/18 1123 2133 0318Erasmo Colon MD /nt
== END 2018-04-10 14:48 | disposition home or self-care (01) | DRG 377 ==
LOC: M.ERS 22:04 → M.ICU 03-30 01:12 → M.TBA-ER 03-30 01:12 → M.ICU 03-30 02:01 → M.2W 03-31 17:41 → M.ORTHSURG 04-02 16:21 → M.2W 04-08 11:57
PROVIDERS: Family Medicine; Internal Medicine; Internal Medicine Gastroenterology; Internal Medicine Nephrology; Nurse Practitioner Family; ADMIT Internal Medicine
PROC: 0DJD8ZZ Inspection of Lower Intestinal Tract, Via Natural or Artificial Opening Endoscopic (ICD-10-PCS; principal; 2018-03-30)
PROC: 02HV33Z Insertion of Infusion Device into Superior Vena Cava, Percutaneous Approach (ICD-10-PCS; principal; 2018-03-30)
PROC: 0DJ08ZZ Inspection of Upper Intestinal Tract, Via Natural or Artificial Opening Endoscopic (ICD-10-PCS; principal; 2018-03-30)
DX: K57.31 Diverticulosis of large intestine without perforation or abscess with bleeding (principal); N17.0 Acute kidney failure with tubular necrosis; Z68.44 Body mass index [BMI] 60.0-69.9, adult; I13.0 Hypertensive heart and chronic kidney disease with heart failure and stage 1 through stage 4 chronic kidney disease, or unspecified chronic kidney disease; D62 Acute posthemorrhagic anemia; R65.10 Systemic inflammatory response syndrome (SIRS) of non-infectious origin without acute organ dysfunction; E44.1 Mild protein-calorie malnutrition; I50.32 Chronic diastolic (congestive) heart failure; N18.4 Chronic kidney disease, stage 4 (severe); E78.5 Hyperlipidemia, unspecified; E66.01 Morbid (severe) obesity due to excess calories; E11.319 Type 2 diabetes mellitus with unspecified diabetic retinopathy without macular edema; E11.22 Type 2 diabetes mellitus with diabetic chronic kidney disease; E11.40 Type 2 diabetes mellitus with diabetic neuropathy, unspecified; I25.10 Atherosclerotic heart disease of native coronary artery without angina pectoris; K64.4 Residual hemorrhoidal skin tags; I95.9 Hypotension, unspecified; K59.09 Other constipation; E87.5 Hyperkalemia; F17.210 Nicotine dependence, cigarettes, uncomplicated; I25.2 Old myocardial infarction; Z23 Encounter for immunization; Z90.49 Acquired absence of other specified parts of digestive tract; Z90.710 Acquired absence of both cervix and uterus; Z89.432 Acquired absence of left foot; Z79.4 Long term (current) use of insulin; Z79.82 Long term (current) use of aspirin; Z79.899 Other long term (current) drug therapy; Z88.5 Allergy status to narcotic agent; Z82.49 Family history of ischemic heart disease and other diseases of the circulatory system

== ENCOUNTER 2018-04-11 03:49 | Inpatient (IN) | payer OTHER ==
[2018-04-11] VITALS (7 sets, daily range): BP systolic 145–181; BP diastolic 77–105
[~2018-04-11] VITALS: Ht 170.2 cm; Wt 178.3 kg
[~2018-04-11 03:49] MED LIST changes: +ALKA-SELTZER P1 EAC2; +CARVEDILOL3.125 MG PO; +HYDRALAZINE 5050 MG; +INDOMETHACIN 2525 MG; +LASIX 40 MG TAB40 M2 PO; +OMEPRAZOLE40 MG PO; +PEPTO-BISMOL T262 MG; +TUMS PO; +[UNRECOGNIZED DRUG - OTHER]
[2018-04-11 04:10] LABS: ABSOLUTE BASOPHILS 0.1 thou/uL (0.0-0.2); ABSOLUTE EOSINOPHILS 0.1 thou/uL (0.0-0.7); ABSOLUTE LYMPHOCYTES 1.6 thou/uL (0.8-5.3); ABSOLUTE NEUTROPHILS 5.3 thou/uL (1.6-8.1); BASOPHILS 1.4 %; EOSINOPHILS 1.3 %; HEMATOCRIT 30.1 % (37.0-47.0); HEMOGLOBIN 9.4 gm/dL (12.0-15.0); LYMPHOCYTES 20.1 %; MCH 27.4 pg (26.0-34.0); MCHC 31.3 g/dL (28.0-37.0); MCV 87.7 fL (80.0-100.0); MONOCYTES 11.9 %; MPV 7.7 fl. (7.2-11.1); NUCLEATED RBCS 0 /100WBC; PLATELET COUNT* 233 thou/uL (150-400); POLYS 65.3 %; RBC 3.43 mil/uL (4.20-5.00); WBC 8.1 thou/uL (4.0-11.0)
[2018-04-11 04:20] LABS: ANION GAP 7 mmol/L (7-16); BUN 49 mg/dL (7-18); CHLORIDE 111 mmol/L (98-107); CO2 23 mmol/L (21-32); CREATININE 3.3 mg/dL (0.6-1.3); GLUCOSE 116 mg/dL (70-99); POTASSIUM 5.1 mmol/L (3.5-5.1); SODIUM 141 mmol/L (136-145)
[2018-04-11 04:24] LABS: INR 1.3
[2018-04-11 04:31] LABS: ALBUMIN 2.7 g/dL (3.4-5.0); ALKALINE PHOSPHATASE 231 U/L (46-116); LIPASE 62 U/L (73-393); NT-PRO BRAIN NAT PEPTIDE 9135 pg/mL (<300); SGOT 23 U/L (15-37); SGPT 23 U/L (30-65); TOTAL BILIRUBIN 0.6 mg/dL (<0.1-1.0); TOTAL PROTEIN 7.7 g/dL (6.4-8.2); TROPONIN-I LEVEL <0.06 ng/mL (<0.06)
--- NOTE | 2018-04-11 10:09 | EKG ---
[place] [address] ELECTROCARDIOGRAM REPORT Name: MICHAEL CORTES Room: [address] ADM IN [facility].#: [id number] Admission: 04/11/18 Attend Phys: Taryn Hartman Discharge: Date of : 58 Report #: [id number] THIS REPORT FOR: //name// [facility] ED Test Date: 2018-04-11 Test Time: 04:18:45 Pat Name: MICHAEL CORTES Department: Room: [facility] Gender: F Voice Instructor: MAYRA : 1960 Requested By: Bola Bedolla Order Number: [id number] MD: Wu Hathaway Measurements Intervals Booker Rate: 90 P: HI: QRS: -6 QRSD: 86 T: 66 QT: 375 QTc: 459 Interpretive Statements sinus rhythm Low voltage, extremity and precordial leads Probable anteroseptal infarct, old Compared to ECG 03/30/2018 18:20:33 Sinus tachycardia no longer present Myocardial infarct finding still present Electronically Signed On 04-11-2018 10:09:35 CDT by Wu Hathaway [email or web address] <ELECTRONICALLY SIGNED> By: Wu Hathaway MD, FACC 04/11/18 1009 0418 0418 Wu Hathaway MD, [facility] /EPI
--- NOTE | 2018-04-11 17:27 | 2DMMODE ---
[place] [address] 2 D/M-MODE ECHOCARDIOGRAM Name: MICHAEL CORTES Room: [address] IN [facility]#: [id number] Admission: 04/11/18 Attend Phys: Philip Calderón Discharge: Date of : 58 Date of Service: 04/11/18 1727 Report #: [id number] THIS REPORT FOR: //name// APPROVED REPORT Study performed: 04/11/2018 14:47:27 EXAM: Comprehensive 2D, Doppler, and color-flow Echocardiogram Patient Location: In-Patient Room #: [facility] Status: routine BSA: 2.69 HR: 87 bpm BP: 154/79 mmHg Rhythm: NSR Other Information Study Quality: Technically Difficult Technically limited study due to body habitus, inability to position patient, parasternal views only views obtainable.. Indications Congestive Heart Failure 2D Dimensions IVSd: 13.47 (7-11mm) LVOT Diam: 21.44 (18-24mm) LVDd: 39.77 mm PWd: 14.11 (7-11mm) Ascending Ao: 36.26 (22-36mm) LVDs: 33.11 (25-40mm) Aortic Root: 32.01 mm Pulmonary Valve PV Peak Bolivar.: 0.79 m/s PV Peak Gr.: 2.51 mmHg Tricuspid Valve RAP Estimate: 5.00 mmHg TR Peak Gr.: 22.95 mmHg RVSP: 28.00 mmHg PA Pressure: 28.00 mmHg Left Ventricle The left ventricle is normal size. There is normal LV segmental wall motion. Mild concentric left ventricular hypertrophy. Left ventricular systolic function is borderline. LVEF is 50-55%. This study is not technically sufficient to allow [place] [address] 2 D/M-MODE ECHOCARDIOGRAM Name: MICHAEL CORTES Room: [address] IN .R.#: [id number] Admission: 04/11/18 Attend Phys: Philip Calderón Discharge: Date of : 58 Date of Service: 04/11/18 1727 Report #: [id number] diastolic function. Right Ventricle The right ventricle is normal size. The right ventricular systolic function is normal. Atria The left atrium size is normal. The right atrium size is normal. Aortic Valve The aortic valve is normal in structure. No aortic regurgitation is present. There is no aortic valvular stenosis. Mitral Valve The mitral valve is normal in structure. Mild mitral regurgitation. No evidence of mitral valve stenosis. Tricuspid Valve The tricuspid valve is normal in structure. Mild tricuspid regurgitation. No pulmonary hypertension. Pulmonic Valve Pulmonic valve is not well visualized. Trace pulmonic regurgitation. Great Vessels The aortic root is normal in size. IVC is not well visualized. Pericardium There is no pericardial effusion. <Conclusion> LVEF is 50-55%. Mild mitral regurgitation. Mild tricuspid regurgitation. No pulmonary hypertension. <ELECTRONICALLY SIGNED> By: Wu Hathaway MD, FACC 04/11/181726 26 26 Wu Hathaway MD, FACC /INF
[2018-04-12 04:27] VITALS: BP 171/83
[2018-04-12 08:15] VITALS: BP 146/68
[2018-04-12 11:33] VITALS: BP 165/95
[2018-04-12 11:33] LABS: URINE BILIRUBIN NEGATIVE (Negative); URINE BLOOD 3+ (Negative); URINE CLARITY CLEAR; URINE COLOR YELLOW; URINE GLUCOSE-RANDOM NEGATIVE (Negative); URINE KETONES NEGATIVE (Negative); URINE LEUKOCYTES-REFLEX 1+ (Negative); URINE PROTEIN 2+ (Negative); URINE UROBILINOGEN 0.2 E.U./dl (0.2-1.0)
[2018-04-12 11:34] LABS: URINE NITRITE-REFLEX POSITIVE (Negative)
[2018-04-12 11:40] LABS: SQUAMOUS 0-3 Few /LPF (0-3)
[2018-04-12 11:41] LABS: BACTERIA-REFLEX 1-9 Few /HPF (None Seen); CASTS None Seen /LPF (None Seen); CRYSTALS None Seen /LPF (None Seen); MUCUS 0-3 Light strn/LPF (None Seen); URINE WBC-REFLEX 6-15 Few /HPF (0-5)
[2018-04-12 12:52] LABS: ABSOLUTE BASOPHILS 0.1 thou/uL (0.0-0.2); ABSOLUTE EOSINOPHILS 0.1 thou/uL (0.0-0.7); ABSOLUTE LYMPHOCYTES 1.5 thou/uL (0.8-5.3); ABSOLUTE MONOCYTES 0.8 thou/uL (0.0-1.2); BASOPHILS 1.3 %; EOSINOPHILS 1.6 %; HEMATOCRIT 26.5 % (37.0-47.0); HEMOGLOBIN 8.4 gm/dL (12.0-15.0); MCH 27.6 pg (26.0-34.0); MCHC 31.7 g/dL (28.0-37.0); MCV 86.9 fL (80.0-100.0); MONOCYTES 9.6 %; MPV 7.2 fl. (7.2-11.1); NUCLEATED RBCS 0 /100WBC; PLATELET COUNT* 214 thou/uL (150-400); POLYS 70.5 %; RBC 3.05 mil/uL (4.20-5.00); RDW-CV 16.5 % (10.5-14.5); WBC 8.6 thou/uL (4.0-11.0)
[2018-04-12 12:59] LABS: CALCIUM 8.8 mg/dL (8.5-10.1); CREATININE 3.1 mg/dL (0.6-1.3); POTASSIUM 5.2 mmol/L (3.5-5.1)
[2018-04-12 16:00] VITALS: BP 155/78
[2018-04-12 19:40] VITALS: BP 145/68
[2018-04-13 00:04] VITALS: BP 141/48
[2018-04-13 04:29] VITALS: BP 146/68
[2018-04-13 08:00] VITALS: BP 144/82
[2018-04-13 09:22] LABS: CALCIUM 8.7 mg/dL (8.5-10.1); POTASSIUM 5.3 mmol/L (3.5-5.1)
[2018-04-13 11:56] VITALS: BP 165/80
[2018-04-13 17:21] VITALS: BP 167/92
[2018-04-13 22:10] LABS: IgA 250 mg/dL (87-352); IgG 1927 mg/dL (700-1600); IgM 72 mg/dL (26-217)
[2018-04-14] VITALS: BP 138/73
[2018-04-14 04:00] VITALS: BP 140/73
[2018-04-14 04:57] LABS: ABSOLUTE BASOPHILS 0.1 thou/uL (0.0-0.2); ABSOLUTE EOSINOPHILS 0.1 thou/uL (0.0-0.7); ABSOLUTE LYMPHOCYTES 1.7 thou/uL (0.8-5.3); ABSOLUTE NEUTROPHILS 6.2 thou/uL (1.6-8.1); BASOPHILS 0.7 %; EOSINOPHILS 1.6 %; HEMATOCRIT 29.1 % (37.0-47.0); HEMOGLOBIN 9.3 gm/dL (12.0-15.0); LYMPHOCYTES 18.3 %; MCH 27.7 pg (26.0-34.0); MCHC 31.9 g/dL (28.0-37.0); MONOCYTES 11.3 %; MPV 8.1 fl. (7.2-11.1); NUCLEATED RBCS 0 /100WBC; PLATELET COUNT* 221 thou/uL (150-400); POLYS 68.1 %; RBC 3.34 mil/uL (4.20-5.00); RDW-CV 16.7 % (10.5-14.5); WBC 9.1 thou/uL (4.0-11.0)
[2018-04-14 05:31] LABS: CREATININE 2.8 mg/dL (0.6-1.3); POTASSIUM 5.2 mmol/L (3.5-5.1)
[2018-04-14 08:00] VITALS: BP 135/67
[2018-04-14 12:00] VITALS: BP 174/79
[2018-04-14 16:00] VITALS: BP 164/80
[2018-04-15] VITALS: BP 165/80
[2018-04-15 04:00] VITALS: BP 153/84
[2018-04-15 06:00] LABS: HEMATOCRIT 27.8 % (37.0-47.0); HEMOGLOBIN 8.8 gm/dL (12.0-15.0); MCH 27.5 pg (26.0-34.0); MCHC 31.7 g/dL (28.0-37.0); MCV 86.9 fL (80.0-100.0); RBC 3.2 mil/uL (4.20-5.00); RDW-CV 16.5 % (10.5-14.5); WBC 9.9 thou/uL (4.0-11.0)
[2018-04-15 06:19] LABS: CALCIUM 8.9 mg/dL (8.5-10.1); CREATININE 2.8 mg/dL (0.6-1.3); POTASSIUM 5.2 mmol/L (3.5-5.1)
[2018-04-15 08:00] VITALS: BP 158/92
[2018-04-15 12:00] VITALS: BP 158/92
[2018-04-15 16:00] VITALS: BP 163/87
[2018-04-16] VITALS: BP 181/99
[2018-04-16 08:00] VITALS: BP 158/78
[2018-04-16 12:00] VITALS: BP 170/89
[2018-04-16 13:11] LABS: KAPPA FREE LIGHT CHAINS 137.7 mg/L (3.3-19.4); LAMBDA FREE LIGHT CHAINS 109.3 mg/L (5.7-26.3)
[2018-04-16 13:25] LABS: HEMATOCRIT 29.3 % (37.0-47.0); HEMOGLOBIN 9.2 gm/dL (12.0-15.0); MCH 27.1 pg (26.0-34.0); MCHC 31.4 g/dL (28.0-37.0); MCV 86.3 fL (80.0-100.0); MPV 7.8 fl. (7.2-11.1); RBC 3.4 mil/uL (4.20-5.00); RDW-CV 16.8 % (10.5-14.5); WBC 9.3 thou/uL (4.0-11.0)
[2018-04-16 13:40] LABS: CREATININE 2.6 mg/dL (0.6-1.3); POTASSIUM 4.6 mmol/L (3.5-5.1)
[2018-04-16 16:00] VITALS: BP 106/60; BP 160/86
[2018-04-16 20:00] VITALS: BP 180/87
[2018-04-16 23:50] VITALS: BP 186/98
[2018-04-17 04:39] VITALS: BP 189/110
[2018-04-17 04:42] LABS: ABSOLUTE BASOPHILS 0.1 thou/uL (0.0-0.2); ABSOLUTE EOSINOPHILS 0.2 thou/uL (0.0-0.7); ABSOLUTE LYMPHOCYTES 2.1 thou/uL (0.8-5.3); ABSOLUTE MONOCYTES 0.9 thou/uL (0.0-1.2); ABSOLUTE NEUTROPHILS 7.2 thou/uL (1.6-8.1); BASOPHILS 0.7 %; EOSINOPHILS 1.9 %; HEMATOCRIT 30.3 % (37.0-47.0); HEMOGLOBIN 9.4 gm/dL (12.0-15.0); LYMPHOCYTES 20.3 %; MCH 27.4 pg (26.0-34.0); MCV 88.3 fL (80.0-100.0); MONOCYTES 8.6 %; MPV 8.1 fl. (7.2-11.1); NUCLEATED RBCS 1 /100WBC; PLATELET COUNT* 214 thou/uL (150-400); POLYS 68.5 %; RBC 3.44 mil/uL (4.20-5.00); WBC 10.5 thou/uL (4.0-11.0)
[2018-04-17 05:06] LABS: ALBUMIN 2.6 g/dL (3.4-5.0); CALCIUM 8.9 mg/dL (8.5-10.1); CREATININE 2.4 mg/dL (0.6-1.3); POTASSIUM 4.6 mmol/L (3.5-5.1); TOTAL BILIRUBIN 0.4 mg/dL (<0.1-1.0)
[2018-04-17 07:55] VITALS: BP 173/84
--- NOTE | 2018-04-17 10:04 | CON ---
[facility] [address] [place] [address] CONSULTATION Name: MICHAEL CORTES Room: [address] IN .R.#: [id number] Admission: 04/11/18 Attend Phys: Taryn Hartman Discharge: Date of : 58 Report #: [id number] THIS REPORT FOR: //name// CC: Gavin Calderón DATE OF SERVICE: 04/13/2018 REQUESTING PHYSICIAN: Dr. Sal. REASON FOR CONSULTATION: History of lymphoma. SUBJECTIVE: This is a 57-year-old -I[place] female who has been admitted because of CHF exacerbation, zkdur-nm-sazevrp diastolic. She stated that 20 years ago she was treated for lymphoma after she had a biopsy of the axillary lymph nodes. She received chemotherapy between 3-4 months. She did not receive any radiation. The patient stated that she is not sure exactly which type, whether it is Hodgkin versus non-Hodgkin. Again, that was done at [facility]. Most recently, she felt some pressure-like to the bilateral lower quadrants. I reviewed her previous recent imaging including CT scan of the abdomen without contrast, which showed extensive anasarca; however, there was no pelvic adenopathy seen. In addition to that, the patient had acute kidney injury, ATN on chronic kidney disease. She is baseline around 3.0. She is actually getting IV iron. REVIEW OF SYSTEMS: All systems were reviewed. It was negative except the above. PAST MEDICAL HISTORY: Lymphoma 20 years ago, was treated with chemotherapy at [facility], not sure exactly which type. CHF, lower GI bleed, dyslipidemia, diabetes mellitus, hypertension, coronary artery disease, neuropathy, chronic kidney disease, morbid obesity. MEDICATIONS: Per admission list. ALLERGIES: MORPHINE. FAMILY HISTORY: Positive for coronary artery disease. SOCIAL HISTORY: She is a former smoker 1 pack per day for 40 years. No alcohol abuse or drug abuse. PAST SURGICAL HISTORY: Hysterectomy, cholecystectomy, left foot amputation. PHYSICAL EXAMINATION: VITAL SIGNS: Today, temperature 36.6, pulse 81, respirations 18, [place] [address] CONSULTATION Name: MICHAEL CORTES Room: [address]#: [id number] Admission: 04/11/18 Attend Phys: Taryn Hartman Discharge: Date of : 58 Report #: [id number] is 164/80, SpO2 was 100% on nasal cannula. GENERAL: The patient was lying in bed. She was not in acute distress. LUNGS: Decreased breathing sounds bilaterally with mild crackles. ABDOMEN: The patient had a midline surgical scar. EXTREMITIES: It was soft. I was not able to feel any palpable lymphadenopathy, however, in the inguinal area. LABORATORY DATA: Today: WBC 8.6, hemoglobin 8.4, RDW of 16.5, MCV 86.9, platelets 214. Creatinine is 3.0. Iron 24, TIBC 340, saturation 7, ferritin 41, bilirubin 0.6, B12 1553, folate is 15.6. ASSESSMENT: A 57-year-old -I[place]ic female who was evaluated because of a previous history of lymphoma 20 years ago, treated with a short course of chemotherapy at [facility], not sure exactly the stage or the type; however, she felt some fullness in the lower quadrant of her abdomen, not able to feel any lymphadenopathy in the inguinal area. However, it is very hard due to the body habitus. RECOMMENDATIONS: 1. I would like to obtain a PET/CT scan, which is going to be done as an outpatient. 2. In terms of anemia, most likely this is due to her chronic kidney disease. Since 01/2018, she has been around baseline between 8 and 9. I totally agree with IV iron to keep her ferritin above 100. We will add peripheral blood smear, LDH, and retic count. We will follow the patient during hospitalization. <ELECTRONICALLY SIGNED> By: Khanh Guo MD 04/17/18 1004 1250 0108Khanh Guo MD /nt
[2018-04-17 12:00] VITALS: BP 154/85
[2018-04-17 16:00] VITALS: BP 126/75
[2018-04-17 17:09] LABS: GLOBULIN TOTAL 3.8 g/dL (2.2-3.9); M-SPIKE Not Observed g/dL (Not Observed)
[2018-04-17 21:15] VITALS: BP 152/81
[2018-04-18 00:24] VITALS: BP 156/68
[2018-04-18 04:00] VITALS: BP 127/82
[2018-04-18 07:55] VITALS: BP 129/82
[2018-04-18 09:19] VITALS: BP 129/82
[2018-04-18] MEDS ORDERED: LASIX 80 MG TAB80 MG PO (12:14)
[2018-04-18] MEDS ORDERED: NIFEDIPINE ER60 M1 PO (12:15)
[2018-04-18] MEDS ORDERED: CEFUROXIME500 MG PO (12:16)
--- NOTE | 2018-04-19 18:23 | CON ---
[address] [address] CONSULTATION Name: MICHAEL CORTES Room: [address]#: [id number] Admission: 04/11/18 Attend Phys: Taryn Hartman Discharge: 04/18/18 Date of : 58 Report #: [id number] THIS REPORT FOR: //name// CC: Gavin Calderón DATE OF SERVICE: 04/13/2018 CONSULTING PHYSICIAN: Dr. Sal. REASON FOR NEPHROLOGY CONSULTATION: Recent acute kidney injury with possible fluid overload. REASON FOR ADMISSION: Sudden onset shortness of breath and facial swelling and leg edema. HISTORY OF PRESENT ILLNESS: This is a 57-year-old female who was discharged from the hospital on 04/10/2018 when she had a prolonged hospitalization for lower GI bleed and acute kidney injury, came in because she woke up feeling swollen in her legs and having edema around her eyes and was also having some shortness of breath. She was found to have a creatinine of 3.3 when she initially came in and she did receive couple of doses of 40 mg Lasix when she came in. Sidhu catheter was also placed, I am not sure if she was retaining any urine, but her urine output has been good, about 1.7 liters in the last 24 hours. She has also been having some abdominal pain and her last bowel movement was about couple of days ago. Her creatinine was high in the last admission and she had ischemic ATN because of low blood pressure, NSAID use, Lasix, ADRIANA inhibitor, losartan as well as lower GI bleed. In fact, her creatinine at that time peaked at 4.5, but it improved to 3.3 at the time of discharge and she did not need any dialysis. She is currently still having abdominal pain. Her breathing seems to be stable. Her edema seems to be the same as it was when she was discharged. Her ejection fraction was found to be 50-55%. Diastolic dysfunction could not be evaluated and no evidence of pulmonary hypertension on her echo which was done in this admission. Also her D-dimer was high, so V/Q scan was done, which ruled out PE. Her chest x-ray did not particularly look too much congested, but did show some mild vascular congestion. ALLERGIES: MORPHINE. REVIEW OF SYSTEMS: As mentioned above in history of present illness and otherwise she has no nausea, no vomiting. She does have constipation and she just feels terrible because of her abdominal pain currently. HOME MEDICATIONS: Include insulin, nitroglycerin, ascorbic acid, famotidine, omeprazole, carvedilol, calcium carbonate, [place] [address] CONSULTATION Name: MICHAEL CORTES Room: [address]#: [id number] Admission: 04/11/18 Attend Phys: Tayrn Hartman Discharge: 04/18/18 Date of : 58 Report #: [id number] PAST MEDICAL AND SURGICAL HISTORY: Includes recent ischemic ATN, lower GI bleed. In her last admission here colonoscopy could not be done because she developed acute kidney injury. Chronic kidney disease stage 3 because of diabetic and hypertensive nephropathy and baseline creatinine of about 1.5-1.6, hypertension, appendectomy, hysterectomy, cholecystectomy, lymph node removal from bilateral armpit, CA, abscess drained in May, possible chronic diastolic congestive heart failure, left half foot amputation, neuropathy, morbid obesity, and diverticulosis. FAMILY HISTORY: Heart disease. SOCIAL HISTORY: She does not smoke. She lives at home. She used to be a smoker. She uses alcohol only occasionally and does not use any recreational drugs. PHYSICAL EXAMINATION: VITAL SIGNS: Blood pressure is 138/70, pulse rate is 89, temperature 36.9, respiratory rate is 20 and pulse ox is 100% on 2 liters nasal cannula. GENERAL: She is awake and alert and oriented. She is lying down in bed. HEAD, EYES, EARS, NOSE AND THROAT: Mucous membranes are moist. NECK: JVD is hard to assess. CHEST: Bilateral diminished breath sounds. No crackles heard. CARDIOVASCULAR: S1, S2 normal. No murmurs. ABDOMEN: Soft, but it is tender all over. There is no rebound or guarding and she has lower abdominal wall edema, 2+. EXTREMITIES: Lower Extremities: She has at least 2+ edema in bilateral lower extremities. NEUROLOGIC: Gross neurological function is intact. PSYCHIATRIC: Mood and affect seem to be normal. LABORATORY DATA: Hemoglobin is 8.4. Potassium is 5.3, creatinine is actually 3.0 now from 3.3 on admission. Iron saturation was 7% and ferritin was 41. Other labs reviewed. IMAGING: Nuclear scan, chest x-ray were reviewed. ASSESSMENT: 1. Recent acute kidney injury on chronic kidney disease stage 3, baseline creatinine used to be 1.5-1.6 on her last admission she went home with a creatinine of 3.3 and her creatinine is worse 3.3 on admission this time, but now it has improved to 3.0. During her last admission, serum immunofixation, free light chain ratio, ERLINDA, all was negative. UA at this time shows evidence of UTI with 11-20 rbc's, 2+ protein and 6-15 wbc's per high power field. 2. Edema, some fluid overload, at the most mild in nature. 3. Abdominal pain, could be related to constipation, she does have history of recent lower gastrointestinal bleed. [facility] [address] [place] [address] CONSULTATION Name: MICHAEL CORTES Room: [address] IN [facility].#: [id number] Admission: 04/11/18 Attend Phys: Taryn Hartman Discharge: 04/18/18 Date of : 58 Report #: [id number] 4. Hypertension, blood pressure currently controlled. 5. Chronic kidney disease stage 3, baseline creatinine 1.5-1.6, hypertensive and diabetic nephropathy. 6. Shortness of breath, mildly improved after Lasix, could be associated with chronic diastolic congestive heart failure exacerbation. 7. Inguinal lymphadenopathy, hematology has been called, remote history of lymphoma. 8. Iron deficiency anemia. Hemoglobin is currently at goal 8.4%, but iron saturation was 7%. 9. Constipation. PLAN: 1. We will give her another dose of Lasix 40 mg IV to help with her edema and hyperkalemia as well. 2. She should be on a renal diet with a 2 g sodium and carb-controlled. 3. We will give her Dulcolax suppository to help with her constipation. 4. She should be on strict I's and O's. 5. We will refrain from giving her p.o. iron since she has been having abdominal pain, but we will give her IV iron to replenish her stores. The patient does not seem to be septic. 6. Urinary tract infection, the patient is getting ceftriaxone currently and follow urine cultures. 7. Agree with Hematology input to evaluate her inguinal lymphadenopathy, some of this could be lymphedema. Thank you for the consultation. We will continue to follow along with you. Discussed the plan with the patient as well as the patient's nurse, Nawaf and we will follow with you. <ELECTRONICALLY SIGNED> By: Silvia Rose MD 04/19/18 1823 0944 2133Aruiz Rose MD /nt
== END 2018-04-18 15:55 | disposition home or self-care (01) | DRG 291 ==
LOC: M.ERS 03:49 → M.3W 05:08 → M.TBA-ER 05:08 → M.3W 05:55
PROVIDERS: Emergency Medicine; Family Medicine; Internal Medicine; Internal Medicine Nephrology; ADMIT Internal Medicine
DX: I13.0 Hypertensive heart and chronic kidney disease with heart failure and stage 1 through stage 4 chronic kidney disease, or unspecified chronic kidney disease (principal); I50.33 Acute on chronic diastolic (congestive) heart failure; N17.0 Acute kidney failure with tubular necrosis; Z68.44 Body mass index [BMI] 60.0-69.9, adult; N12 Tubulo-interstitial nephritis, not specified as acute or chronic; N18.3 Chronic kidney disease, stage 3 (moderate); E11.22 Type 2 diabetes mellitus with diabetic chronic kidney disease; R59.1 Generalized enlarged lymph nodes; D50.9 Iron deficiency anemia, unspecified; I25.10 Atherosclerotic heart disease of native coronary artery without angina pectoris; D89.0 Polyclonal hypergammaglobulinemia; E78.5 Hyperlipidemia, unspecified; K59.00 Constipation, unspecified; B96.1 Klebsiella pneumoniae [K. pneumoniae] as the cause of diseases classified elsewhere; E11.40 Type 2 diabetes mellitus with diabetic neuropathy, unspecified; E66.01 Morbid (severe) obesity due to excess calories; I25.2 Old myocardial infarction; Z90.49 Acquired absence of other specified parts of digestive tract; Z90.710 Acquired absence of both cervix and uterus; Z89.432 Acquired absence of left foot; Z87.891 Personal history of nicotine dependence; Z79.4 Long term (current) use of insulin; Z79.899 Other long term (current) drug therapy; Z88.5 Allergy status to narcotic agent; Z82.49 Family history of ischemic heart disease and other diseases of the circulatory system

== ENCOUNTER 2020-02-17 12:32 | Inpatient (IN) | payer MEDICARE ==
[~2020-02-17] VITALS: Ht 170.2 cm; Wt 122.5 kg
--- NOTE | ~2020-02-17 | CON ---
[facility] [address] [place] [address] CONSULTATION Name: MICHAEL CORTES Room: [address] IN .R.#: [id number] Admission: 02/17/20 Attend Phys: Benitez Sal MD Discharge: Date of : 58 Report #: [id number] THIS REPORT FOR: //name// cc: Gavin Patino MD, Tuongvan T. MD ~ THIS REPORT FOR: //name// CC: Benitez Patino DATE OF SERVICE: 02/18/2020 REQUESTING PHYSICIAN: Benitez Sal MD REASON FOR CONSULTATION: Assist in providing dialysis. HISTORY OF PRESENT ILLNESS: The patient is a very pleasant 59-year-old female with medical history significant for end-stage renal disease, diabetes mellitus type 2, hypertension, and peripheral artery disease. She presents with stroke-like symptoms. She had dizziness and she was lightheaded. She had some problems to answer questions correctly so, Code stroke was called, and Neurology was involved. She had an MRI and CT scan done. MRI showed no acute noncontrast abnormalities. No acute infarction. There was mild chronic white matter microvascular ischemia. Her dialysis takes place at [facility] in [place]. She is on Monday, Monday, and Monday schedule and she was dialyzed yesterday. PAST MEDICAL HISTORY: As I mentioned earlier. SOCIAL HISTORY: No tobacco or alcohol abuse. FAMILY HISTORY: Noncontributory. MEDICATIONS: Prior to admission reviewed. REVIEW OF SYSTEMS: Currently, she is asymptomatic. No chest pain, no shortness of breath, no nausea, no vomiting, no diarrhea, no constipation. She is not febrile. She does not have any chills. She has no neurological symptoms either. PHYSICAL EXAMINATION: GENERAL: Awake, alert, oriented. VITAL SIGNS: Blood pressure 124/80, heart rate is 93, respirations 19, afebrile. NECK: Fatty. LUNGS: [place] [address] CONSULTATION Name: MICHAEL CORTES Room: [address] IN [facility].#: [id number] Admission: 02/17/20 Attend Phys: Benitez Sal MD Discharge: Date of : 58 Report #: [id number] CARDIOVASCULAR: Regular rate. EXTREMITIES: She has left arm AV graft. NEUROLOGICAL: There was no neurological deficit on my exam. ASSESSMENT: 1. End-stage renal disease, dialysis Monday, Monday, and Monday schedule. 2. Hypertension. 3. Diabetes mellitus type 2. 4. Obesity. 5. Questionable stroke. PLAN: Dialysis tomorrow if the patient is in the hospital. Her blood pressure is controlled and blood sugar is controlled. By: 1046 0030Alexandr Zana Baxter MD /alexia
[~2020-02-17 12:32] MED LIST changes: +CEFUROXIME500 MG PO; +LASIX 80 MG TAB80 MG PO; +NIFEDIPINE ER60 M1 PO
[2020-02-17 12:47] VITALS: BP 149/47
[2020-02-17 13:20] LABS: ABSOLUTE BASOPHILS 0.1 thou/uL (0.0-0.2); ABSOLUTE EOSINOPHILS 0.2 thou/uL (0.0-0.7); ABSOLUTE LYMPHOCYTES 1.9 thou/uL (0.8-5.3); ABSOLUTE NEUTROPHILS 7.4 thou/uL (1.6-8.1); BASOPHILS 0.9 %; EOSINOPHILS 1.7 %; HEMATOCRIT 37.5 % (37.0-47.0); HEMOGLOBIN 12.4 gm/dL (12.0-15.0); MCH 29.6 pg (26.0-34.0); MCHC 33.2 g/dL (28.0-37.0); MCV 89.4 fL (80.0-100.0); MONOCYTES 9.7 %; MPV 7.6 fl. (7.2-11.1); NUCLEATED RBCS 0 /100WBC; PLATELET COUNT* 257 thou/uL (150-400); POLYS 69.7 %; RDW-CV 13.2 % (10.5-14.5); WBC 10.6 thou/uL (4.0-11.0)
[2020-02-17 13:35] LABS: ALBUMIN 3.3 g/dL (3.4-5.0); CALCIUM 8.7 mg/dL (8.5-10.1); CREATININE 2.4 mg/dL (0.6-1.3); POTASSIUM 4.1 mmol/L (3.5-5.1); TOTAL BILIRUBIN 0.3 mg/dL (<0.1-1.0); TOTAL PROTEIN 8.7 g/dL (6.4-8.2)
[2020-02-17 13:37] LABS: APTT 29.4 Seconds (25.0-31.3); INR 1.1; PROTIME 11.2 Seconds (9.20-11.50)
[2020-02-17 14:57] VITALS: BP 139/71
[2020-02-17 15:13] VITALS: BP 127/65
[2020-02-17] MEDS ORDERED: HYDRALAZINE 10M10 MG PO (20:27)
[2020-02-17] MEDS ORDERED: HEARTBURN PREVE10 MG PO (20:29)
[2020-02-17] MEDS ORDERED: TRAMADOL 50 MG50 MG PO (20:30)
[2020-02-17] MEDS ORDERED: FLEXERIL PO (20:32)
[2020-02-17 21:00] VITALS: BP 154/85
[2020-02-18] VITALS: BP 127/68
[2020-02-18 02:06] LABS: GLYCOHEMOGLOBIN (HGB A1C) 6.8 % (4.8-5.6)
[2020-02-18 04:00] VITALS: BP 111/63
[2020-02-18 07:24] LABS: ABSOLUTE BASOPHILS 0.1 thou/uL (0.0-0.2); ABSOLUTE EOSINOPHILS 0.2 thou/uL (0.0-0.7); ABSOLUTE LYMPHOCYTES 2.7 thou/uL (0.8-5.3); ABSOLUTE MONOCYTES 0.8 thou/uL (0.0-1.2); ABSOLUTE NEUTROPHILS 5.3 thou/uL (1.6-8.1); BASOPHILS 1.1 %; EOSINOPHILS 1.9 %; HEMATOCRIT 35.5 % (37.0-47.0); HEMOGLOBIN 11.8 gm/dL (12.0-15.0); LYMPHOCYTES 29.7 %; MCHC 33.4 g/dL (28.0-37.0); MONOCYTES 8.6 %; MPV 8.2 fl. (7.2-11.1); NUCLEATED RBCS 0 /100WBC; PLATELET COUNT* 249 thou/uL (150-400); POLYS 58.7 %; RBC 3.94 mil/uL (4.20-5.00); RDW-CV 13.4 % (10.5-14.5); WBC 9.1 thou/uL (4.0-11.0)
[2020-02-18 07:36] LABS: CHOLESTEROL 132 mg/dL (<200); HDL CHOLESTEROL 47 mg/dL (>40); LDL CHOLESTEROL 57 mg/dL (<100); TC:HDL 2.8 Ratio (Not establshd); TRIGLYCERIDE 143 mg/dL (<150); VLDL 29 mg/dL (<40)
[2020-02-18 07:38] LABS: SERUM ASSESSMENT Clear
[2020-02-18 07:50] LABS: CALCIUM 8.4 mg/dL (8.5-10.1); CREATININE 2.9 mg/dL (0.6-1.3); POTASSIUM 4.9 mmol/L (3.5-5.1)
[2020-02-18 08:00] VITALS: BP 124/80
[2020-02-18 12:00] VITALS: BP 142/80
--- NOTE | 2020-02-18 12:02 | 2DMMODE ---
[place] [address] 2 D/M-MODE ECHOCARDIOGRAM Name: MICHAEL CORTES Room: [address] IN [facility]#: [id number] Admission: 02/17/20 Attend Phys: Benitez Sal, Discharge: Date of : 58 Date of Service: 02/18/20 1202 Report #: [id number] THIS REPORT FOR: cc: Gavin Patino MD, Tuongvan T. MD Liston, Michael J. MD [facility] ~ APPROVED REPORT Study performed: 02/18/2020 10:43:07 EXAM: Comprehensive 2D, Doppler, and color-flow Echocardiogram Patient Location: In-Patient Room #: [facility] Status: routine BSA: 2.34 HR: 98 bpm BP: 124/80 mmHg Rhythm: NSR Other Information Study Quality: Adequate Technically limited study due to patient unable to tolerate apical views due to prior breast surgery. Indications CVA/TIA Echo Enhancing Agent Indication: Rule out Shunt Agent(s) / Amount(s) Used: Agitated Saline 10 cc 2D Dimensions IVSd: 12.31 (7-11mm) LVOT Diam: 21.18 (18-24mm) LVDd: 47.20 mm PWd: 10.90 (7-11mm) Ascending Ao: 35.81 (22-36mm) LVDs: 28.86 (25-40mm) Aortic Root: 32.35 mm Aortic Valve AoV Peak Bolivar.: 1.06 m/s AO Peak Gr.: 4.47 mmHg LVOT Max P.54 mmHg AO Mean Gr.: 2.50 mmHg LVOT Mean P.85 mmHg LVOT Max V: 0.94 m/s AO V2 VTI: 20.71 cm LVOT Mean V: 0.63 m/[place] [address] 2 D/M-MODE ECHOCARDIOGRAM Name: MICHAEL CORTES Room: [address] IN [facility]#: [id number] Admission: 02/17/20 Attend Phys: Benitez Sal, Discharge: Date of : 58 Date of Service: 02/18/20 1202 Report #: [id number] TITA (VTI): 3.58 cm2 LVOT V1 VTI: 21.03 cm Pulmonary Valve PV Peak Bolivar.: 0.82 m/s PV Peak Gr.: 2.68 mmHg Left Ventricle The left ventricle is normal size. There is normal LV segmental wall motion. There is normal left ventricular wall thickness. Left ventricular systolic function is normal. LVEF is 55-60%. Transmitral Doppler flow pattern suggests impaired LV relaxation. Right Ventricle The right ventricle is normal size. The right ventricular systolic function is normal. Atria The left atrium size is normal. The bubble study is uninterpretable. Consider BLAIR if clinically indicated. The right atrium size is normal. Aortic Valve The aortic valve is normal in structure. No aortic regurgitation is present. There is no aortic valvular stenosis. Mitral Valve The mitral valve is normal in structure. There is no mitral valve regurgitation noted. No evidence of mitral valve stenosis. Tricuspid Valve The tricuspid valve is normal in structure. There is no tricuspid valve regurgitation noted. Pulmonic Valve The pulmonary valve is normal in structure. There is no pulmonic valvular regurgitation. Great Vessels The aortic root is normal in size. IVC is normal in size and collapses >50% with inspiration. Pericardium There is no pericardial effusion. <Conclusion> The left ventricle is normal size. There is normal left [place] [address] 2 D/M-MODE ECHOCARDIOGRAM Name: MICHAEL CORTES Taryn Room: [address] IN [facility]#: [id number] Admission: 02/17/20 Attend Phys: Benitez Sal, Discharge: Date of : 58 Date of Service: 02/18/20 1202 Report #: [id number] Left ventricular systolic function is normal. LVEF is 55-60%. Transmitral Doppler flow pattern suggests impaired LV relaxation. There is normal LV segmental wall motion. The bubble study is uninterpretable. Consider BLAIR if clinically indicated. IVC is normal in size and collapses >50% with inspiration. <ELECTRONICALLY SIGNED> By: Luis Knutson MD, FACC 02/18/20 120 120 120 Luis Knutson MD, FACC /INF
[2020-02-18 15:58] VITALS: BP 143/82
--- NOTE | 2020-02-18 17:27 | EKG ---
[place] [address] ELECTROCARDIOGRAM REPORT Name: MICHAEL CORTES Room: [address] ADM IN .R.#: [id number] Admission: 02/17/20 Attend Phys: Benitez Sal, Discharge: Date of : 58 Date of Service: 02/17/20 1332 Report #: [id number] THIS REPORT FOR: //name// [facility] ED Test Date: 2020-02-17 Test Time: 13:32:20 Pat Name: MICHAEL CORTES Department: Room: [facility] Gender: F Publications Writer: CCD : 1960 Requested By: Kris Lee Order Number: [id number] MD: Rojelio Baeza Measurements Intervals [place] Rate: 92 P: 31 LA: 169 QRS: -39 QRSD: 96 T: 68 QT: 397 QTc: 492 Interpretive Statements Sinus rhythm Probable left atrial enlargement Inferior infarct, old Consider anterior infarct Compared to ECG 04/11/2018 04:18:45 No significant changes Electronically Signed On 02-18-2020 17:27:32 CDT by Rojelio Baeza [email or web address] <ELECTRONICALLY SIGNED> By: Rojelio Baeza MD, [facility] 02/18/20 1727 1332 1332 Rojelio Baeza MD, [facility] /EPI
[2020-02-18 20:31] VITALS: BP 124/87
[2020-02-18 21:02] LABS: URINE BILIRUBIN NEGATIVE (Negative); URINE BLOOD 3+ (Negative); URINE CLARITY CLEAR; URINE COLOR YELLOW; URINE GLUCOSE-RANDOM NEGATIVE (Negative); URINE KETONES TRACE (Negative); URINE LEUKOCYTES-REFLEX NEGATIVE (Negative); URINE NITRITE-REFLEX NEGATIVE (Negative); URINE PROTEIN 3+ (Negative); URINE SPECIFIC GRAVITY >= 1.030 (1.005-1.030); URINE UROBILINOGEN 0.2 E.U./dl (0.2-1.0)
[2020-02-18 21:09] LABS: AMP/METHAMP Negative (Negative); BARBITURATES Negative (Negative); BENZODIAZEPINES Negative (Negative); COCAINE Negative (Negative); METHADONE Negative (Negative); OPIATES Negative (Negative); PCP Negative (Negative); THC Negative (Negative)
[2020-02-18 21:21] LABS: BACTERIA-REFLEX >30 Many /HPF (None Seen); SQUAMOUS >10 Many /LPF (0-3); URINE RBC >20 Many /HPF (0-2); URINE WBC-REFLEX 6-15 Few /HPF (0-5)
[2020-02-18 21:22] LABS: CRYSTALS None Seen /LPF (None Seen); HYALINE CASTS 0-3 Few /LPF (None Seen); MUCUS None Seen strn/LPF (None Seen)
[2020-02-19 00:08] VITALS: BP 116/63
[2020-02-19 04:00] VITALS: BP 120/70
[2020-02-19 07:43] VITALS: BP 144/88
[2020-02-19] MEDS ORDERED: CEFUROXIME500 MG PO (10:19)
[2020-02-19 11:03] VITALS: BP 144/88
--- NOTE | 2020-02-20 03:46 | CON ---
[address] [address] CONSULTATION Name: MICHAEL CORTES Room: [address] IN M.R.#: [id number] Admission: 02/17/20 Attend Phys: Benitez Sal MD Discharge: 02/19/20 Date of : 58 Report #: [id number] THIS REPORT FOR: //name// cc: Gavin Patino MD, Tuongvan T. MD ~ THIS REPORT FOR: //name// CC: Benitez Patino DATE OF SERVICE: 02/18/2020 HISTORY OF PRESENT ILLNESS: This is a 59-year-old female patient who was seen by me yesterday. I cannot find the dictation, so I am doing it again. She said she had her dialysis and during that time, she was able to walk, but then she went on dialysis and sometime along the line, she stopped moving her right lower extremity. There was no pain associated with that. She was sleepy, but then she wakes up. She did not think she has this kind of symptom before. REVIEW OF SYSTEMS: Positive for low back pain. She has a history of GI bleed, chest pain, abscesses, kidney problem. She said she had strokes in the past, but did not elaborate much. She has morbid obesity. She is on dialysis. She has a left foot amputation, cholecystectomy, hypertension, diabetes, abscesses, drain, congestive heart failure, diverticulosis. This was a relevant 14-point review of system. PAST MEDICAL HISTORY: Positive for renal failure and some history suggestive of stroke. FAMILY HISTORY: Noncontributory. SOCIAL HISTORY: She used to smoke. PHYSICAL EXAMINATION: NEUROLOGIC: Indicates she was sleepy, but she woke up. When woke up, she followed commands. To me, the speech did not look that much different. Cranial nerve examination, the best it could be carried out, does not appear to be showing any definite abnormality. She did not move the right lower extremity, but her position sense was intact. Reflexes were diminished. There is no meningeal sign. NECK: There is no carotid bruit. GENERAL: She is morbidly obese. HEENT: Her vision and hearing looked adequate. CARDIAC: Examination is unremarkable. VITAL SIGNS: Blood pressure is 142/80, respiration is 18, pulse is 96, temperature is 96.8. [place] [address] CONSULTATION Name: MICHAEL CORTES Room: [address]#: [id number] Admission: 02/17/20 Attend Phys: Benitez Sal MD Discharge: 02/19/20 Date of : 58 Report #: [id number] EXTREMITIES: Pulses are somewhat difficult to feel. LABORATORY DATA: White count was 9.1. GFR was 20. She had an MRI done yesterday, which I reviewed which did not show any acute changes. IMPRESSION: She presented with a right leg weakness. She needed the workup for stroke. We decided to watch her and see how she does and do rest of the workup accordingly. Thank you very much for this referral. <ELECTRONICALLY SIGNED> By: Barak Rogers MD 02/20/20 0346 1346 1420Barak Rogers MD /nt
== END 2020-02-19 11:40 | disposition home or self-care (01) | DRG 69 ==
LOC: M.ERS 12:32 → M.2W 13:56 → M.TBA-ER 13:56 → M.2W 18:27
PROVIDERS: Emergency Medicine Emergency Medical Services; ADMIT Internal Medicine; ATTEND Internal Medicine
DX: G45.9 Transient cerebral ischemic attack, unspecified (principal); G93.41 Metabolic encephalopathy; N18.6 End stage renal disease; I50.32 Chronic diastolic (congestive) heart failure; I13.0 Hypertensive heart and chronic kidney disease with heart failure and stage 1 through stage 4 chronic kidney disease, or unspecified chronic kidney disease; E44.1 Mild protein-calorie malnutrition; Z68.41 Body mass index [BMI] 40.0-44.9, adult; E66.2 Morbid (severe) obesity with alveolar hypoventilation; N32.1 Vesicointestinal fistula; E11.22 Type 2 diabetes mellitus with diabetic chronic kidney disease; E11.40 Type 2 diabetes mellitus with diabetic neuropathy, unspecified; F17.210 Nicotine dependence, cigarettes, uncomplicated; E11.51 Type 2 diabetes mellitus with diabetic peripheral angiopathy without gangrene; F45.9 Somatoform disorder, unspecified; Z20.828 Contact with and (suspected) exposure to other viral communicable diseases; K57.90 Diverticulosis of intestine, part unspecified, without perforation or abscess without bleeding; F41.9 Anxiety disorder, unspecified; Z90.710 Acquired absence of both cervix and uterus; Z90.49 Acquired absence of other specified parts of digestive tract; I25.2 Old myocardial infarction; Z79.899 Other long term (current) drug therapy; Z88.5 Allergy status to narcotic agent; Z99.2 Dependence on renal dialysis

== ENCOUNTER → 2021-04-07 | Day surgery (SDC) | payer OTHER ==
[~2021-04-07] MED LIST changes: +ADULT LOW DOSE81 MG PO; +CARVEDILOL25 MG PO; +FUROSEMIDE 20 M20 MG PO; +HEARTBURN PREVE10 MG PO; +HYDRALAZINE 10M10 MG PO; +ISOSORBIDE DINI20 M2 PO; +PROBIOTIC1 EAC7; +ROSUVASTATIN CA40 MG PO; +TRAMADOL 50 MG50 MG PO; +VITAMIN C100 MG; +ZEGERID 20 MG1 EACH PO; +ZINC30 M1
--- NOTE | ~2021-04-07 | PROC ---
[address] [address] PROCEDURE REPORT Name: MICHAEL CORTES Room: [facility]#: [id number] Admission: 04/07/21 Attend Phys: Alex Serna DO Discharge: Date of : 58 Report #: [id number] THIS REPORT FOR: cc: Gavin Patino MD, Tuongvan T. MD [facility],Medical Records Staff ~ For GI report, please see the Provation report in Perceptive 7 content. By: [id number] Records Staff GUY /NANCY
[2021-04-07 09:26] LABS: HEMATOCRIT 37.2 % (37.0-47.0); HEMOGLOBIN 12.1 gm/dL (12.0-15.0); MCHC 32.5 g/dL (28.0-37.0); MCV 89.2 fL (80.0-100.0); MPV 7.7 fl. (7.2-11.1); RBC 4.17 mil/uL (4.20-5.00); RDW-CV 14.4 % (10.5-14.5); WBC 8.6 thou/uL (4.0-11.0)
[2021-04-07 09:45] LABS: CALCIUM 9.3 mg/dL (8.5-10.1); CREATININE 3.5 mg/dL (0.6-1.3); POTASSIUM 3.6 mmol/L (3.5-5.1)
[2021-04-07 09:49] LABS: ALBUMIN 3.3 g/dL (3.4-5.0); TOTAL BILIRUBIN 0.4 mg/dL (<0.1-1.0); TOTAL PROTEIN 8.2 g/dL (6.4-8.2)
--- NOTE | 2021-04-07 14:48 | EKG ---
[place] [address] ELECTROCARDIOGRAM REPORT Name: MICHAEL CORTES Room: [facility]#: [id number] Admission: 04/07/21 Attend Phys: Alex Serna, Discharge: Date of : 58 Date of Service: 04/07/21 0944 Report #: [id number] THIS REPORT FOR: //name// [facility] Test Date: 2021-04-07 Test Time: 09:44:51 Pat Name: MICHAEL CORTES Department: Room: Gender: F Technical Solutions Director: PAUL : 1960 Requested By: Alex Serna Order Number: [id number] MD: Rojelio Baeza Measurements Intervals [place] Rate: 95 P: 26 MS: 185 QRS: -37 QRSD: 102 T: 88 QT: 395 QTc: 497 Interpretive Statements Sinus rhythm Inferior infarct, old Anterior infarct, old Compared to ECG 02/17/2020 13:32:20 No significant changes Electronically Signed On 04-07-2021 14:47:49 CDT by Rojelio Baeza [email or web address] <ELECTRONICALLY SIGNED> By: Rojelio Baeza MD, [facility] 04/07/21 1447 0944 0944 Rojelio Baeza MD, [facility] /EPI
== END | disposition home or self-care (01) ==
LOC: M.SUR 05:54
PROVIDERS: ATTEND Internal Medicine Gastroenterology
DX: Z12.11 Encounter for screening for malignant neoplasm of colon (principal); Z86.010 Personal history of colon polyps; Z80.0 Family history of malignant neoplasm of digestive organs; R12 Heartburn; K64.4 Residual hemorrhoidal skin tags; K57.30 Diverticulosis of large intestine without perforation or abscess without bleeding; I13.0 Hypertensive heart and chronic kidney disease with heart failure and stage 1 through stage 4 chronic kidney disease, or unspecified chronic kidney disease; E11.22 Type 2 diabetes mellitus with diabetic chronic kidney disease; N18.6 End stage renal disease; F32.9 Major depressive disorder, single episode, unspecified; E78.5 Hyperlipidemia, unspecified; I50.9 Heart failure, unspecified; J44.9 Chronic obstructive pulmonary disease, unspecified; Z90.49 Acquired absence of other specified parts of digestive tract; Z90.710 Acquired absence of both cervix and uterus; Z98.890 Other specified postprocedural states; Z79.899 Other long term (current) drug therapy; Z87.891 Personal history of nicotine dependence